=== PATIENT | male | born 1940 | race Caucasian/White ===

== ENCOUNTER 2016-11-10 17:24 | Emergency (ER) | payer MEDICARE ==
[2010-11-21 23:39] VITALS: BMI 32.6
[2016-11-10 18:31] LABS: BASOPHILS 0.3 % (0.0-2.0); EOSINOPHILS 2.1 % (0-7); HEMATOCRIT 45.4 % (42.0-54.0); HEMOGLOBIN 15.4 g/dL (13.5-17.5); IMMATURE GRANULOCYTES 0.1 % (0-5); LYMPHOCYTES 26.7 % (15-50); MCH 30.7 pg (26.0-34.0); MCHC 33.9 g/dL (31.0-37.0); MCV 90.4 fL (80.0-100.0); MEAN PLATELET VOLUME 9.5 fL (7.4-10.4); MONOCYTES 14.9 % (2-11); NEUTROPHILS 55.9 % (40-80); PLATELET COUNT 156 10x3/uL (130-400); RBC 5.02 10x6/uL (4.20-6.10); WBC 7.2 10x3/uL (4.8-10.8)
== END 2016-11-10 21:30 | disposition home or self-care (01) ==
LOC: D.ER 17:24
PROVIDERS: Emergency Medicine
DX: J18.9 Pneumonia, unspecified organism (principal); E11.9 Type 2 diabetes mellitus without complications; Z79.4 Long term (current) use of insulin; I10 Essential (primary) hypertension

== ENCOUNTER → 2017-01-20 13:15 | Outpatient (CLI) | payer MEDICARE ==
[2010-11-21 23:39] VITALS: BMI 32.6
== END | disposition home or self-care (01) ==
LOC: D.US 13:15
DX: M54.5 Low back pain (principal)

== ENCOUNTER 2017-05-08 07:34 | Inpatient (IN) | payer MEDICARE ==
[~2017-05-08] VITALS: Ht 182.9 cm; Wt 95.3 kg
--- NOTE | ~2017-05-08 | HEMODYNAMI ---
PATIENT:CHARLEY VASQUEZ JR MEDICAL RECORD: [id number] : 44 LOCATION:D.CAT ADMISSION DATE: 05/08/17 Generatedon:05/08/201711:38 Patient name: CHARLEY VASQUEZ Patient #: [id number] SSN: : 1940 Date of study: 05/08/2017 Page: Of Hemodynamic Procedure Report Patient Data Patient Demographics Procedure consent was obtained First Name: CHARLEY Gender: Male Last Name: PEDRO Suffix: [facility] Initial: Vonda : 1940 Patient #: [id number] Age: 76 year(s) Race: Unknown Additional ID: [id number] Contact details [address]: [address] [place] [address] State: [place] City: [place] Zip code: [address] Past Medical History Allergies Allergen Reaction Date Comments Reported Penicillins 05/08/2017 Admission Admission Data Admission Date: 05/08/2017 Admission Time: 7:34 Lab Results Lab Result Date: 05/08/2017 Lab Result Time: 0:00 Biochemistry Name Units Result Min Max BUN mg/dl 13 --(--*-)-- 7 18 Creatinine mg/dl 1 --(--*-)-- 0.6 1.3 CBC Name Units Result Min Max Hemoglobin g/dl 15.1 --(-*--)-- 13.5 17.5 Procedure Procedure Types Cath Procedure Diagnostic Procedure LHC LHC w/Coronaries w/Grafts Miscellaneous Procedures Moderate Sedation up to 30 minutes Procedure Description Procedure Date Procedure Date: 05/08/2017 Procedure Start Time: 11:19 Procedure End Time: 11:37 Procedure Staff Name Function Claude Mills MD Performing Physician Chasity Peterson RN Nurse Srinivasan Hitchcock RT Monitor Jhon Carrizales RT Scrub Procedure Data Cath Procedure Fluoroscopy Diagnostic fluoroscopy Total fluoroscopy Time: 2 time: 2 min min Diagnostic fluoroscopy Total fluoroscopy dose: 286 dose: 286 mGy mGy Contrast Material Contrast Material Type Amount (ml) Isovue 300 90 Entry Location Entry Primary Successful Side Size Upsize Upsize Entry Closure Succes sful Closure Location (Fr) 1 (Fr) 2 (Fr) Remarks Device Remarks Femoral Right 5 Fr Exoseal artery Diagnostic catheters Device Type Used For End Catheter Placement Cordis 5Fr Pigtail LV Angiography Catheter (MP) Cordis 5Fr JL 4.0 Left Coronary Catheter (MP) Angiography Cordis 5Fr 3DRC Catheter SVG Angiography (MP) Cordis 5Fr 3DRC Catheter Right Coronary (MP) Angiography Diagnostic Infinity 5Fr SVG Angiography AR MOD Catheter Procedure Complications No complications Procedure Medications Medication Administration Route Dosage Oxygen NC 2 l/min Heparin Flush Bag added to field 2 bags (1000units/500ml NS) Lidocaine 2% added to field 20 Versed I.V. 1 mg Fentanyl I.V. 50 mcg Versed I.V. 1 mg Fentanyl I.V. 50 mcg Versed I.V. 1 mg Fentanyl I.V. 50 mcg Versed I.V. 1 mg Fentanyl I.V. 50 mcg Hemodynamics Rest HGB: 15.1 (g/dl) Heart Rate: 89 (bpm) Snapshots Pre Cath Intra NCS Post Cath Vital Signs Time Heart Resp SPO2 NIBP (mmHg) Rhythm Pain Sedation Rate (ipm) (%) Status Level (bpm) 10:37:56 90 14 96 147/79(116) NSR w/ ST 0 (11) 10(A) Elevation , No pain 10:42:20 87 18 95 140/77(105) NSR w/ ST 0 (11) 10(A) Elevation , No pain 10:46:46 85 18 95 139/72(106) NSR w/ ST 0 (11) 10(A) Elevation , No pain 10:51:13 82 25 96 135/75(103) NSR w/ ST 0 (11) 10(A) Elevation , No pain 10:55:39 86 20 94 139/72(99) NSR w/ ST 0 (11) 10(A) Elevation , No pain 11:00:07 83 20 95 128/71(97) NSR w/ ST 0 (11) 10(A) Elevation , No pain 11:05:06 84 22 90 Measuring NSR w/ ST 0 (11) 10(A) Elevation , No pain 11:05:21 84 20 91 130/64(96) NSR w/ ST 0 (11) 10(A) Elevation , No pain 11:10:20 86 21 96 Measuring NSR w/ ST 0 (11) 10(A) Elevation , No pain 11:10:44 84 23 95 123/71(94) NSR w/ ST 0 (11) 10(A) Elevation , No pain 11:15:02 85 21 96 126/70(101) NSR w/ ST 0 (11) 9(A) Elevation , No pain 11:19:20 81 24 96 126/68(94) NSR w/ ST 0 (11) 9(A) Elevation , No pain 11:23:45 83 21 95 127/65(98) NSR w/ ST 0 (11) 9(A) Elevation , No pain 11:28:07 85 22 95 119/72(102) NSR w/ ST 0 (11) 9(A) Elevation , No pain 11:29:57 85 23 95 132/49(92) NSR w/ ST 0 (11) 10(A) Elevation , No pain 11:34:57 84 23 95 Measuring NSR w/ ST 0 (11) 10(A) Elevation , No pain 11:36:21 82 21 96 Time NSR w/ ST 0 (11) 10(A) Exceeded Elevation , No pain Medications Time Medication Route Dose Verified Delivered Reason Notes Effec tiveness by by 10:31:14 Oxygen NC 2 Claude Chasity Per l/min Gene Peterson RN physician 10:50:28 Heparin Flush added 2 Claude Claude used for Bag to bags Gene Mills MD procedure (1000units/500ml field NS) 10:50:37 Lidocaine 2% added 20ml Claude Claude used for to vial Gene Mills MD procedure field 11:08:17 Versed I.V. 1 mg Claude Chasity for eGne Peterson RN sedation 11:08:37 Fentanyl I.V. 50 Claude Chasity for mcg Gene Peterson RN sedation 11:11:20 Versed I.V. 1 mg Claude Chasity for Gene Peterson RN sedation 11:11:23 Fentanyl I.V. 50 Claude Chasity for mcg Gene Peterson RN sedation 11:15:29 Versed I.V. 1 mg Claude Chasity for Gene Peterson RN sedation 11:15:41 Fentanyl I.V. 50 Claude Thrasherca for mcg Gene Peterson RN sedation 11:20:57 Versed I.V. 1 mg Claude Maloneecca for Gene Peterson RN sedation 11:21:00 Fentanyl I.V. 50 Claude Maloneecca for mcg Gene Peterson RN sedation Procedure Log Time Note 9:56:29 Diagnostic Cath status Urgent 9:56:34 Jhon Carrizales RT(R) sent for patient. Start room use. 9:56:35 Time tracking: Regular hours 9:56:39 Plan of Care:Hemodynamics will remain stable., Cardiac rhythm will remain stable., Comfort level will be maintained., Respiratory function will remain adequate., Patient/ family verbilizes understanding of procedure., Procedure tolerated without complication., Recovers from procedure without complications.. 10:30:27 Patient received from ED to CCL 3 Alert and oriented. Tansferred to table in Supine position. 10:31:14 Oxygen 2 l/min NC was administered by Chasity Peterson RN; Per physician; 10:36:28 Correct patient and procedure confirmed by team. 10:36:28 Warm blankets applied, and moy hugger turned on for patient comfort. 10:36:31 Signed procedure consent form obtained from patient. 10:36:33 ECG and BP/O2 sat monitors applied to patient. 10:36:34 Vital chart was started 10:36:44 Baseline sample Acquired. 10:36:51 Rhythm: sinus rhythm 10:36:57 Full Disclosure recording started 10:42:22 H&P Date Dictated: 05/08/2017 Within 30 days and on chart.. 10:42:23 Pre-procedure instructions explained to patient. 10:42:23 Pre-op teaching completed and patient verbalized understanding. 10:42:25 Family in waiting room. 10:42:26 Patient NPO since Midnight. 10:43:08 Patient allergic to Penicillins 10:43:11 Is the patient allergic to Iodine/contrast media? No. 10:43:17 Is patient on blood thinner?No 10:43:19 Patient diabetic? Yes. 10:43:20 If diabetic: On Metformin? No 10:43:21 ----Pre-sedation anethsthesia assessment.---- 10:43:23 Previous problem with sedation/anesthesia? No ? 10:43:24 Snore? Yes 10:43:26 Sleep apnea? No 10:43:27 Deviated septum? No 10:43:29 Opens mouth fully? Yes 10:43:30 Sticks out tongue? Yes 10:43:31 Airway obstruction? No ? 10:43:34 Dentures? No ? 10:43:38 Pre procedure: right dorsailis pedis pulse 1+ Palpable, but thready & weak; easily obliterated 10:43:40 Patient pain scale 0/10 ?. 10:43:44 IV patent on arrival in left hand with 0.9% NaCl at 10ml/hr. 10:44:44 Lab Result : BUN 13 mg/dl 10:44:44 Lab Result : Creatinine 1 mg/dl 10:44:44 Lab Result : Hemoglobin 15.1 g/dl 10:44:47 Lab results completed and on chart. 10:44:50 Right groin area was prepped with chlora-prep and draped in sterile fashion 10:44:51 Alarms reviewed by R. N. 10:44:51 Sharps counted by scrub and verified by R.N. 10:44:57 Use device set Femoral Dx 10:44:58 Acist Syringe opened to sterile field. 10:44:59 Bag Decanter opened to sterile field. 10:44:59 Medline Cath Pack opened to sterile field. 10:44:59 Terumo 5Fr [place] Sheath opened to sterile field. 10:45:00 St Xavier 260cm J .035 wire opened to sterile field. 10:45:01 Acist Hand Control opened to sterile field. 10:45:01 Acist Manifold opened to sterile field. 10:45:02 Diagnostic Infinity 5Fr Multipack catheter opened to sterile field. 10:45:02 Tegaderm 4 x 4 opened to sterile field. 10:50:28 Heparin Flush Bag (1000units/500ml NS) 2 bags added to field was administered by Claude Mills MD; used for procedure; 10:50:37 Lidocaine 2% 20ml vial added to field was administered by Claude Mills MD; used for procedure; 11:07:15 --------ALL STOP TIME OUT------ 11:07:15 Final Timeout: patient, procedure, and site verified with staff and physician. All members of the team are in agreement. 11:07:17 Right groin site verified by team. 11:07:26 Physical assessment completed. ASA score P 2 - A patient with mild systemic disease as per Claude Mills MD. 11:07:30 Sedation plan: IV Moderate Sedation Versed, Fentanyl 11:07:47 Zero performed for pressure channel P1 11:07:51 Zero performed for pressure channel P1 11:08:17 Versed 1 mg I.V. was administered by Chasity Peterson RN; for sedation; 11:08:37 Fentanyl 50 mcg I.V. was administered by Chasity Peterson RN; for sedation; 11:11:20 Versed 1 mg I.V. was administered by Chasity Peterson RN; for sedation; 11:11:23 Fentanyl 50 mcg I.V. was administered by Chasity Peterson RN; for sedation; 11:15:29 Versed 1 mg I.V. was administered by Chasity Peterson RN; for sedation; 11:15:41 Fentanyl 50 mcg I.V. was administered by Chasity Peterson RN; for sedation; 11:18:59 Procedure started. 11:19:08 Local anesthetic to right femoral artery with Lidocaine 2% by Claude Mills MD.INITIAL ACCESS ONLY 11:19:16 A 5 Fr sheath was inserted into the Right Femoral artery 11:19:27 A Cordis 5Fr Pigtail Catheter (MP) was advanced over the wire and used for LV Angiography. 11:20:18 LV angiography performed. 11:20:19 LV gram done using SUAREZ 11:20:24 EF : 25 % 11:20:29 Injector settings: Ml/sec: 10, Volume: 20, 11:20:31 Catheter removed. 11:20:36 A Cordis 5Fr JL 4.0 Catheter (MP) was advanced over the wire and used for Left Coronary Angiography. 11:20:39 LCA angiography performed. 11:20:57 Versed 1 mg I.V. was administered by Chasity Peterson RN; for sedation; 11:21:00 Fentanyl 50 mcg I.V. was administered by Chasity Peterson RN; for sedation; 11:21:05 Catheter removed. 11:21:12 A Cordis 5Fr 3DRC Catheter (MP) was advanced over the wire and used for SVG Angiography. 11:21:15 A Cordis 5Fr 3DRC Catheter (MP) was advanced over the wire and used for Right Coronary Angiography. 11:21:23 OCONNELL to LAD angiography performed. 11:22:11 RCA angiography performed. 11::41 Catheter removed. 11:22:48 A Diagnostic Infinity 5Fr AR MOD Catheter was advanced over the wire and used for SVG Angiography. 11:23:35 SVG to Diag angiography performed. 11:23:54 SVG to Ramus angiography performed. 11:23:58 SVG to OM angiography performed. 11:24:20 SVG to RCA angiography performed. 11:24:22 Catheter removed. 11:24:38 Cordis 5Fr Exoseal opened to sterile field. 11:24:44 Sheath removed intact; hemostasis achieved with Exoseal to the Right Femoral artery. 11:24:47 Contrast amount:Isovue 300 90ml. 11:24:48 Procedure ended.(Physican Out) 11:24:57 Fluoroscopy time 02.00 minutes. 11:25:02 Fluoroscopy dose: 286 mGy 11:25:02 Flurop Dose total: 286 11:25:04 Sharps counted by scrub and verified by R.N. 11:25:04 Insertion/operative site no bleeding no hematoma. 11:25:07 Post-op/insertion site Right Femoral artery dressed using a 4 x 4 and Tegaderm. 11:25:12 Post right femoral artery:stable 11:25:13 Post Procedure Pulses reassessed and unchanged 11:25:18 Post procedure rhythm: sinus tachycardia 11:25:20 Post procedure instruction explained to patient.Patient verbalizes understanding. 11:25:46 Procedure type changed to Cath procedure, Diagnostic procedure, LHC, LHC w/Coronaries w/Grafts, Miscellaneous Procedures, Moderate Sedation up to 30 minutes 11:25:50 Procedure and supply charges have been captured, reviewed, submitted and are correct. 11:25:53 Procedure Complication : No complications 11:37:41 Vital chart was stopped 11::41 See physician's report for complete and final results. 11:37:43 Report given to Pre/Post Procedure Room. 11:37:46 Patient transfered to Pre/Post Procedure Room with Stretcher. 11:37:51 Procedure ended. 11:37:51 Full Disclosure recording stopped 11:37:54 End room use (Document Last) Device Usage Item Name Manufacture Quantity Catalog Hospital Part Current Minimal Lo t# / Number Charge Number Stock Stock Serial# Code Acist Acist 1 11031 [id number] 064606 496642 20 Syringe [employer] Inc Bag Microtek 1 2002S 153828 14474 378257 5 Decanter Medical Inc. Medline Cardinal 1 [id number] 379019 70617 377676 5 Cath Pack Health Terumo 5Fr Terumo 1 [id number] 223709 459352 259717 [address] [place] [address] [facility] 1 554262 253164 298263 251346 30 260cm J .035 wire Acist Hand Acist 1 04066 948763 660144 301102 5 Control Medical Systems Inc Acist Acist 1 10672 629587 819023 824522 5 Manifold Medical Systems Inc Diagnostic Cardinal 1 [id number] 864733 75989 460511 30 Infinity Health 5Fr Multipack catheter Tegaderm 4 3M 1 1626W 303544 689362 765867 5 x 4 Cordis 5Fr Cardinal 1 121522 5 Pigtail Health Catheter (MP) Cordis 5Fr Cardinal 1 [id number] 5 JL 4.0 Health Catheter (MP) Cordis 5Fr Cardinal 1 279240 5 3DRC Health Catheter (MP) Diagnostic Cardinal 1 [id number] 663722 912579 090864 15 Infinity Health 5Fr AR MOD Catheter Cordis 5Fr Cardinal 1 EX500 560843 784284 764602 10 [place] Signature Audit [place] Stage Time Signature Unsigned Intra-Procedure 05/08/2017 Srinivasan Hitchcock 11:38:15 AM RT(R) Signatures Monitor : Srinivasan Hitchcock RT Signature : Date : Time : [place] [id number] [facility] [place] [address]
[2017-05-08 08:17] LABS: BASOPHILS 0.2 % (0-2); EOSINOPHILS 0.5 % (0-7); HEMATOCRIT 44.3 % (42.0-54.0); HEMOGLOBIN 15.1 g/dL (13.5-17.5); IMMATURE GRANULOCYTES 0.2 % (0-5); LYMPHOCYTES 19.7 % (15-50); MCH 30.5 pg (26.0-34.0); MCHC 34.1 g/dL (31.0-37.0); MCV 89.5 fL (80.0-100.0); MEAN PLATELET VOLUME 9.6 fL (7.4-10.4); MONOCYTES 12.6 % (2-11); NEUTROPHILS 66.8 % (40-80); PLATELET COUNT 148 10x3/uL (130-400); RBC 4.95 10x6/uL (4.20-6.10); RDW 12.9 % (11.5-14.5); WBC 9.4 10x3/uL (4.8-10.8)
[2017-05-08 08:41] LABS: APPEARANCE CLEAR (CLEAR); COLOR YELLOW (YELLOW); LEUKOCYTE ESTERASE TRACE (NEGATIVE); NITRITE NEGATIVE (NEGATIVE); PROTEIN 1+ mg/dL (NEGATIVE); SPECIFIC GRAVITY 1.015 (1.005-1.020)
[2017-05-08 08:42] LABS: BACTERIA FEW /hpf (NONE SEEN); BILIRUBIN NEGATIVE (NEGATIVE); EPITHELIAL CELLS 0-5 /hpf (0-5); GLUCOSE 50 mg/dL (NEGATIVE); KETONE NEGATIVE (NEGATIVE); MUCUS >1+ /lpf (NONE SEEN); RED CELLS - URINE 0-5 /hpf (0-5); UROBILINOGEN NORMAL (NORMAL); WHITE CELLS - URINE OCC /hpf (0-5)
[2017-05-08 08:45] LABS: ALBUMIN 3.6 g/dL (3.4-5.0); ALKALINE PHOSPHATASE 65 U/L (46-116); ALT (SGPT) 26 U/L (10-68); C-REACTIVE PROTEIN 4.3 mg/dL (0.0-0.9); CALC OSMOLALITY 263 mosm/kg (275-300); CALCIUM 8.9 mg/dL (8.5-10.1); CARBON DIOXIDE 23.2 mmol/L (21.0-32.0); CHLORIDE - SERUM 99 mmol/L (98-107); CREATINE KINASE 59 UL (21-232); MAGNESIUM - SERUM 1.8 mg/dL (1.8-2.4); POTASSIUM - SERUM 3.5 mmol/L (3.5-5.1); PRO BNP 1077 pg/mL (0-125); PROTEIN - SERUM 7.6 g/dL (6.4-8.2); SODIUM 129 mmol/L (136-145); THYROID STIMULATING HORMONE 0.92 uIU/mL (0.36-3.74); UREA NITROGEN 13 mg/dL (7-18); eGFR NON AFRICAN AMERICAN 78 mL/min (90-120)
[2017-05-08 08:50] LABS: GLUCOSE 184 mg/dL (74-106)
[2017-05-08 10:14] LABS: APTT 27.1 SECONDS (22.8-39.4); INR 1.04 (0.85-1.17); PROTIME 13.4 SECONDS (11.6-15.0)
[2017-05-08] MEDS ORDERED: FLOMAX0.4 MG PO (16:16)
[2017-05-08] MEDS ORDERED: NORVASC10 MG PO (16:16)
[2017-05-08] MEDS ORDERED: LANTUS INSULIN10 ML SC (16:17)
[2017-05-08] MEDS ORDERED: PRINIVIL20 MG PO (16:18)
[2017-05-08] MEDS ORDERED: COREG6.25 MG PO (16:19)
[2017-05-08] MEDS ORDERED: HYDROCHLOROTH12.5 M1 PO (16:19)
[2017-05-08] MEDS ORDERED: LUMIGAN 0.01%2.5 ML LEFT EYE (16:20)
[2017-05-08] MEDS ORDERED: LIPITOR40 MG PO (16:22)
[2017-05-08] MEDS ORDERED: ASPIRIN81 MG PO (16:23)
[2017-05-08 16:24] VITALS: BP 129/55; BMI 29.9
[2017-05-08 17:33] LABS: BASOPHILS 0.2 % (0-2); EOSINOPHILS 0.2 % (0-7); HEMATOCRIT 44.1 % (42.0-54.0); IMMATURE GRANULOCYTES 0.2 % (0-5); LYMPHOCYTES 19.1 % (15-50); MCH 30.4 pg (26.0-34.0); MCV 89.5 fL (80.0-100.0); MEAN PLATELET VOLUME 9.8 fL (7.4-10.4); MONOCYTES 17.1 % (2-11); NEUTROPHILS 63.2 % (40-80); PLATELET COUNT 145 10x3/uL (130-400); RBC 4.93 10x6/uL (4.20-6.10); WBC 10.6 10x3/uL (4.8-10.8)
[2017-05-08 17:48] LABS: ALBUMIN 3.4 g/dL (3.4-5.0); ANION GAP 14.1 mmol/L (8-16); BILIRUBIN - TOTAL 0.78 mg/dL (0.2-1.3); CALCIUM 8.8 mg/dL (8.5-10.1); CARBON DIOXIDE 24.4 mmol/L (21.0-32.0); CREATININE - SERUM 1.1 mg/dL (0.6-1.3); POTASSIUM - SERUM 3.5 mmol/L (3.5-5.1); PROTEIN - SERUM 6.9 g/dL (6.4-8.2)
[2017-05-08 19:00] VITALS: BP 117/55
[2017-05-08 20:25] LABS: APPEARANCE CLEAR (CLEAR); BILIRUBIN NEGATIVE (NEGATIVE); COLOR YELLOW (YELLOW); GLUCOSE NEGATIVE (NEGATIVE); KETONE NEGATIVE (NEGATIVE); LEUKOCYTE ESTERASE NEGATIVE (NEGATIVE); NITRITE NEGATIVE (NEGATIVE); PROTEIN TRACE mg/dL (NEGATIVE); SPECIFIC GRAVITY 1.015 (1.005-1.020); UROBILINOGEN NORMAL (NORMAL)
[2017-05-09] MEDS ORDERED: TYLENOL PM1 TAB PO (00:14)
[2017-05-09 04:00] VITALS: BP 107/37
[2017-05-09 08:00] VITALS: BP 149/60
[2017-05-09 12:00] VITALS: BP 142/80
[2017-05-09 14:44] VITALS: Ht 182.9 cm; Wt 95.3 kg
[2017-05-09] MEDS ORDERED: FLORAJEN3 CAPS460 MG PO (15:49)
[2017-05-09] MEDS ORDERED: VIBRAMYCIN 100100 MG PO (15:50)
--- NOTE | 2017-05-15 10:09 | CN ---
PATIENT NAME:CHARLEY VASQUEZ JR MEDICAL RECORD: [id number] : 44 LOCATION:. D.2127 ADMIT DATE: 05/08/17 ACCOUNT: [id number] CONSULTING PHYSICIAN: ALBER MCARTHUR MD REFERRING PHYSICIAN: DAYANA GUZMAN M.D. INDICATION: 1. Chest pain. 2. Shortness of breath. 3. Coronary artery disease. 4. Previous coronary artery bypass graft surgery. HISTORY OF PRESENT ILLNESS: This is a gentleman who is known to us with a past history of coronary artery disease status post coronary artery bypass graft surgery. He presented to the emergency room with episodes of night sweats and shortness of breath at night. He had mild chest pain and chest discomfort as well. His electrocardiogram is with no acute changes. His troponin is normal. PHYSICAL EXAMINATION: HEAD, EYES, EARS, NOSE, AND THROAT: Benign. NECK: Supple. No jugular venous distention. Carotid upstroke plus two bilaterally without bruits. LUNGS: Overall clear to auscultation and percussion. HEART: Regular. Normal S1, normal S2. No S3, no S4. No murmurs. BONES, JOINTS, EXTREMITIES: No clubbing, cyanosis, or edema. OVERALL IMPRESSION: Dyspnea on exertion with some chest discomfort. He has a past history of coronary artery disease status post multivessel bypass surgery, so a high likelihood of recurrent disease causing the symptomatology. Will proceed with coronary angiography. ALBER MCARTHUR MD at 1009 CC: [id number] DICTATION DATE: 05/08/17 1239 ROTARY DRUM TANNER: TC 05/09/17 1239 DIS IN 05/09/17 [place] [address] [place] [id number]
--- NOTE | 2017-05-15 10:09 | PRO ---
PATIENT:CHARLEY VASQUEZ JR MEDICAL RECORD: [id number] : 44 LOCATION:D.M2 D.2127 ADMISSION DATE: 05/08/17 PROCEDURE PERFORMED BY: ALBER MCARTHUR MD PROCEDURE DATE: 05/08/17 DATE OF PROCEDURE: 05/08/17 PROCEDURES: 1. Left heart catheterization. 2. Selective coronary angiography. 3. Left ventriculogram. 4. Vein graft angiography. 5. Left internal mammary artery angiography. INDICATION: Angina, dyspnea on exertion, shortness of breath, coronary artery disease. PROCEDURE IN DETAIL: After informed consent was obtained and after detailed explanation of risks, benefits, as well as alternative therapies, the patient elected to proceed with angiogram. The right femoral area was prepped and draped in a normal sterile fashion. The right femoral artery was cannulated via modified Seldinger technique with placement of 5-Welsh sheath. All catheters exchanged through this sheath. FINDINGS: Left ventriculogram was performed in standard 30 degree SUAREZ view, reveals global hypokinesis throughout all segments. Overall ejection fraction 35%. SELECTIVE CORONARY ANGIOGRAPHY: 1. Left main has a 95% stenosis distally. 2. Left anterior descending is totally occluded. 3. Left circumflex is totally occluded. 4. Right coronary artery is totally occluded. 5. Left internal mammary artery to the left anterior descending artery is widely patent. Distal left anterior descending artery is widely patent. 6. Vein graft to the left anterior descending diagonal is widely patent. The left anterior descending diagonal is small, diffusely diseased, but widely patent. 7. Vein graft to the ramus intermedius is widely patent. The distal ramus intermedius is widely patent. 8. Vein graft to the first obtuse marginal is widely patent. The obtuse marginal is small, diffusely diseased, but widely patent. 9. Vein graft to the right coronary artery is widely patent. Distal right coronary artery is small, diffusely diseased, but widely patent. OVERALL IMPRESSION: Wide patency of all four grafts. Moderate cardiomyopathy. Continue medical management of the coronary artery disease and cardiomyopathy. PROCEDURE NOTE [id number] CHARLEY VASQUEZ ALBER KING MD at 1009 CC: [id number] DICTATION DATE: 05/08/17 1159 GEARMAN: TC 05/09/17 1159 DIS IN 05/09/17 [facility] [address] [place] [address]
[2017-05-18 12:56] LABS: EHRLICHIA CHAFF IGG Negative (Neg:<1:64); EHRLICHIA CHAFF IGM Negative (Neg:<1:20); HGE IGG TITER Negative (Neg:<1:64); HGE IGM TITER Negative (Neg:<1:20)
[2017-05-18 14:14] LABS: F. TULARENSIS - IGG Negative (()); F. TULARENSIS - IGM Negative (())
[2017-05-18 16:11] LABS: RMSF IGM 0.18 index (0.00-0.89)
== END 2017-05-09 18:34 | disposition home or self-care (01) | DRG 287 ==
LOC: D.ER 07:34 → D.CATH 07:34 → EDSTATUS 10:15 → D.M2 15:45 → D.CATH 15:46 → D.M2 05-09 18:34
PROVIDERS: Emergency Medicine; Internal Medicine Interventional Cardiology; ADMIT Family Medicine
PROC: B2131ZZ Fluoroscopy of Multiple Coronary Artery Bypass Grafts using Low Osmolar Contrast (ICD-10-PCS; 2017-05-08)
PROC: B2181ZZ Fluoroscopy of Left Internal Mammary Bypass Graft using Low Osmolar Contrast (ICD-10-PCS; 2017-05-08)
PROC: B2151ZZ Fluoroscopy of Left Heart using Low Osmolar Contrast (ICD-10-PCS; 2017-05-08)
PROC: 4A023N7 Measurement of Cardiac Sampling and Pressure, Left Heart, Percutaneous Approach (ICD-10-PCS; 2017-05-08)
PROC: B2111ZZ Fluoroscopy of Multiple Coronary Arteries using Low Osmolar Contrast (ICD-10-PCS; principal; 2017-05-08 10:15)
DX: I25.119 Atherosclerotic heart disease of native coronary artery with unspecified angina pectoris (principal); A93.8 Other specified arthropod-borne viral fevers; I50.22 Chronic systolic (congestive) heart failure; Z95.1 Presence of aortocoronary bypass graft; I48.91 Unspecified atrial fibrillation; I11.0 Hypertensive heart disease with heart failure; E03.9 Hypothyroidism, unspecified; I49.1 Atrial premature depolarization; E11.65 Type 2 diabetes mellitus with hyperglycemia; F41.9 Anxiety disorder, unspecified; Z87.891 Personal history of nicotine dependence

== ENCOUNTER 2017-05-20 14:00 | Emergency (ER) | payer MEDICARE ==
[2017-05-09 14:44] VITALS: BMI 28.5
[~2017-05-20 14:00] MED LIST: ASPIRIN81 MG PO; COREG6.25 MG PO; FLOMAX0.4 MG PO; FLORAJEN3 CAPS460 MG PO; HYDROCHLOROTH12.5 M1 PO; LANTUS INSULIN10 ML SC; LIPITOR40 MG PO; LUMIGAN 0.01%2.5 ML LEFT EYE; NORVASC10 MG PO; PRINIVIL20 MG PO; TYLENOL PM1 TAB PO; VIBRAMYCIN 100100 MG PO
[2017-05-20 14:30] LABS: BASOPHILS 0.3 % (0-2); EOSINOPHILS 0.8 % (0-7); HEMATOCRIT 42.5 % (42.0-54.0); HEMOGLOBIN 14.3 g/dL (13.5-17.5); IMMATURE GRANULOCYTES 0.2 % (0-5); MCHC 33.6 g/dL (31.0-37.0); MEAN PLATELET VOLUME 9.2 fL (7.4-10.4); MONOCYTES 10.1 % (2-11); NEUTROPHILS 64.6 % (40-80); RBC 4.62 10x6/uL (4.20-6.10); RDW 13.7 % (11.5-14.5); WBC 11.1 10x3/uL (4.8-10.8)
[2017-05-20 14:31] LABS: PLATELET COUNT 292 10x3/uL (130-400)
[2017-05-20 14:44] LABS: APPEARANCE CLEAR (CLEAR); BILIRUBIN NEGATIVE (NEGATIVE); COLOR YELLOW (YELLOW); GLUCOSE NEGATIVE (NEGATIVE); KETONE NEGATIVE (NEGATIVE); LEUKOCYTE ESTERASE NEGATIVE (NEGATIVE); NITRITE NEGATIVE (NEGATIVE); PROTEIN NEGATIVE (NEGATIVE); SPECIFIC GRAVITY 1.005 (1.005-1.020); UROBILINOGEN NORMAL (NORMAL)
[2017-05-20 15:06] LABS: ALBUMIN 3.6 g/dL (3.4-5.0); ALKALINE PHOSPHATASE 76 U/L (46-116); ALT (SGPT) 35 U/L (10-68); BILIRUBIN - TOTAL 0.63 mg/dL (0.2-1.3); CALC OSMOLALITY 282 mosm/kg (275-300); CALCIUM 9.4 mg/dL (8.5-10.1); CARBON DIOXIDE 25.2 mmol/L (21.0-32.0); CHLORIDE - SERUM 103 mmol/L (98-107); CREATININE - SERUM 0.8 mg/dL (0.6-1.3); GLUCOSE 176 mg/dL (74-106); POTASSIUM - SERUM 4.6 mmol/L (3.5-5.1); PROTEIN - SERUM 7.5 g/dL (6.4-8.2); SODIUM 140 mmol/L (136-145); UREA NITROGEN 12 mg/dL (7-18); eGFR NON AFRICAN AMERICAN > 90 mL/min (90-120)
== END 2017-05-20 16:20 | disposition home or self-care (01) ==
LOC: D.ER 14:00
PROVIDERS: Emergency Medicine
DX: J20.9 Acute bronchitis, unspecified (principal); F17.200 Nicotine dependence, unspecified, uncomplicated

== ENCOUNTER → 2017-07-22 10:33 | Outpatient (CLI) | payer MEDICARE ==
[2017-05-09 14:44] VITALS: BMI 28.5
== END | disposition home or self-care (01) ==
LOC: D.RAD 10:33
DX: R06.02 Shortness of breath (principal)

== ENCOUNTER 2017-08-26 15:30 | Observation (INO) | payer MEDICARE ==
--- NOTE | 2017-08-26 15:42 | NUR ---
NEW ADMIT FROM DR HENRIQUEZ OFFICE. OREINTED TO ROOM. CALL LIGHT IN REACH. WILL CONT. PLAN OF CARE.
[2017-08-26] MEDS ORDERED: ENTRESTO 49 MG1 EACH PO (15:58)
[2017-08-26] MEDS ORDERED: FUROSEMIDE20 MG PO (15:58)
[2017-08-26] MEDS ORDERED: TEMAZEPAM30 MG PO (16:00)
[2017-08-26 16:37] VITALS: BMI 33.3
--- NOTE | 2017-08-26 17:57 | NUR ---
WITHOUT CHANGES OR DISTRESS NOTED AT THIS TIME. DENIES NEEDS.
[2017-08-26] MEDS ORDERED: HUMALOG 30100 UNITS/ SC (18:48)
[2017-08-26 20:35] VITALS: BP 126/66
--- NOTE | 2017-08-26 20:53 | NUR ---
HS MEDS GIVEN WITH FRESH ICE WATER, BS 175, LANTUS GIVEN BUT PT REFUSED HUMALOG S/S COVERAGE. STATED THAT HE USUALLY DOENST TAKE IT AT BED TIME. DENIES PAIN OR NEEDS.
[2017-08-27 00:31] VITALS: BP 112/62
--- NOTE | 2017-08-27 01:42 | NUR ---
RESTING WITH EYES CLOSED, RESPERATIONS EVEN, NO S/S DISTRESS NOTED.
--- NOTE | 2017-08-27 02:31 | NUR ---
LYING IN BED WITH EYES CLOSED, CALL LIGHT IN REACH. WILL CONTINUE WITH PLAN OF CARE. 83 SR WITH 1ST DEGREE AVB, BBB, AND PVCS.
--- NOTE | 2017-08-27 04:14 | NUR ---
ESTATE AGENT AT BED SIDE TO OBTAIN VITALS.
[2017-08-27 05:33] VITALS: BP 114/60
[2017-08-27 06:21] LABS: BASOPHILS 0.3 % (0-2); EOSINOPHILS 2.7 % (0-7); HEMATOCRIT 50.9 % (42.0-54.0); HEMOGLOBIN 16.8 g/dL (13.5-17.5); IMMATURE GRANULOCYTES 0.3 % (0-5); LYMPHOCYTES 23.5 % (15-50); MCH 30.1 pg (26.0-34.0); MCV 91.1 fL (80.0-100.0); MEAN PLATELET VOLUME 10.1 fL (7.4-10.4); MONOCYTES 12.5 % (2-11); NEUTROPHILS 60.7 % (40-80); PLATELET COUNT 245 10x3/uL (130-400); RBC 5.59 10x6/uL (4.20-6.10); RDW 13.9 % (11.5-14.5); WBC 11.5 10x3/uL (4.8-10.8)
[2017-08-27 06:42] LABS: CALC OSMOLALITY 286 mosm/kg (275-300); CALCIUM 9.1 mg/dL (8.5-10.1); CARBON DIOXIDE 30.7 mmol/L (21.0-32.0); CHLORIDE - SERUM 102 mmol/L (98-107); POTASSIUM - SERUM 3.1 mmol/L (3.5-5.1); SODIUM 144 mmol/L (136-145); UREA NITROGEN 15 mg/dL (7-18); eGFR NON AFRICAN AMERICAN 78 mL/min (90-120)
[2017-08-27 06:45] LABS: GLUCOSE 76 mg/dL (74-106)
[2017-08-27 08:00] VITALS: BP 126/55
--- NOTE | 2017-08-27 09:45 | NUR ---
ASSESSMENT DONE. DENIES NEEDS.
--- NOTE | 2017-08-27 09:45 | NUR ---
RESTS IN BED WITH EYES CLOSED. IV PATENT. CALL LIGHT IN REACH. WILL CONT. PLAN OF CARE.
[2017-08-27 10:18] VITALS: BMI 32.0
--- NOTE | 2017-08-27 14:30 | NUR ---
DC GIVEN TO PT
--- NOTE | 2017-08-27 15:15 | NUR ---
DC HOME PER PERSONAL CAR
--- NOTE | 2017-09-04 16:56 | DS ---
PATIENT:CHARLEY SANTIAGO JR :44 MEDICAL RECORD: [id number] DISCHARGE SUMMARY ADMISSION DATE: 08/26/17 DISCHARGE DATE: 08/27/17 DISCHARGE DIAGNOSES: 1. Congestive heart failure, chronic systolic dysfunction. 2. Cardiomyopathy. 3. Coronary artery disease. 4. Hypertension. HOSPITAL COURSE: Mr. Santiago presents with fluid overload, congestive heart failure state, underwent dobutamine and Bumex drips, had marked diuresis. Symptomatology markedly improved and was discharged home with no change in his medications. Follow up with [facility] in 1-2 weeks. TRANSINT:[id number] Voice Confirmation ID: [id number] DOCUMENT ID: [id number] ALBER MCARTHUR MD at 1656 CC: [id number] DICTATION DATE: 08/27/17 1249 DESIGN CENTER CONSULTANT: 08/27/17 1417 DIS IN 08/27/17 [place] [id number] [place] [address]
== END 2017-08-27 15:15 | disposition home or self-care (01) ==
LOC: D.M2 15:30 → OBSVTIME 15:30 → D.M2 08-27 15:15
PROVIDERS: ADMIT Internal Medicine Interventional Cardiology
DX: I11.0 Hypertensive heart disease with heart failure (principal); I50.22 Chronic systolic (congestive) heart failure; I42.9 Cardiomyopathy, unspecified; I25.10 Atherosclerotic heart disease of native coronary artery without angina pectoris

== ENCOUNTER 2018-01-25 06:45 | Outpatient (CLI) | payer MEDICARE ==
[~2018-01-25] VITALS: Ht 182.9 cm; Wt 110.9 kg
[~2018-01-25 06:45] MED LIST changes: +ENTRESTO 49 MG1 EACH PO; +FUROSEMIDE20 MG PO; +HUMALOG 30100 UNITS/ SC; +TEMAZEPAM30 MG PO
[2018-01-25 07:20] VITALS: BP 110/65; Ht 182.9 cm; Wt 110.9 kg
[2018-01-25] MEDS ORDERED: BUMEX2 MG PO (07:30)
[2018-01-25 07:53] LABS: ANION GAP 12.6 mmol/L (8-16); CARBON DIOXIDE 25.1 mmol/L (21.0-32.0); CREATININE - SERUM 0.9 mg/dL (0.6-1.3); POTASSIUM - SERUM 3.7 mmol/L (3.5-5.1)
== END 2018-01-25 16:08 | disposition home or self-care (01) ==
LOC: D.CATH 06:45
PROVIDERS: Internal Medicine Interventional Cardiology
DX: I50.9 Heart failure, unspecified (principal); I42.9 Cardiomyopathy, unspecified

== ENCOUNTER 2018-03-06 20:08 | Inpatient (IN) | payer MEDICARE ==
[~2018-03-06] VITALS: Ht 182.9 cm; Wt 102.0 kg
--- NOTE | ~2018-03-06 | EC ---
PATIENT:CHARLEY VASQUEZ JR DATE OF SERVICE: 03/06/18 SEX: M MEDICAL RECORD: [id number] DATE OF : 44 LOCATION:D.M2 D.210 AGE OF PATIENT: 77 ADMISSION DATE: 03/08/18 REFERRING PHYSICIAN: INTERPRETING PHYSICIAN: MARTHA MARINA MD ECHOCARDIOGRAM REPORT ECHO CHARGES 4 ECHO COMPLETE Date: 03/07 CLINICAL DIAGNOSIS: CHEST PAIN, HX OF CAD/CABG/PACER/STENTS ECHOCARDIOGRAPHIC MEASUREMENTS (adult normal given) AC root (d.<3.7cm) 4.1 cm LV Septum d (<1.2 cm> 1.8 cm Valve Excursion 1.7 cm LV Septum (systole) 2.0 cm Left Atria (s.<4.0cm> 4.3 cm LVPW d(<1.2cm) 1.7 cm RV (d.<2.3cm) 4.5 cm LVPW (sytole) 1.8 cm LV diastole(<5.6CM) 6.5 cm MV E-F(>70mm/sec) cm LV systole 5.1 cm LVOT Diameter 1.7 cm MV exc.(>10mm) 1.5 cm Est.ejection fraction (50-75%) % DOPPLER: LVIT cm/sec A 48.0 cm/sec E 136 cm/sec LA cm/sec RVSP 52 mmHg LVOT 112 cm/sec AOP1/2T 342 m/s Asc. Ao 148 cm/sec RVOT 83 cm/sec RA cm/sec PA 115 cm/sec AV Gradient Peak 8.79 mmHg AV Mean 5.49 mmHg AV Area 1.5 cm MV Gradient Peak 12.29mmHg MV Mean 3.28 mmHg MV Area cm COMMENTS: Semi Automatic Sewing Machine Operator: 2 VERONIKA RICKETTS Aerospace Mechanic: 4 Dr. Marina TAPE# PACS Pericardial Effusion N DATE OF SERVICE: PROCEDURE: Transthoracic echocardiogram. FINDINGS: 1. Left ventricle appears to be mildly dilated. There is mild global hypokinesis. Overall, ejection fraction is 35% to 40%. There is considerable asynchronous wall motion seen because of underlying bundle branch block. 2. The left atrium is mildly dilated. 3. The aortic valve appears to be normal with mild aortic insufficiency. ECHOCARDIOGRAM REPORT [id number] CHARLEY VASQUEZ JR 4. The mitral valve is difficult to visualize, appears to be severe centralized regurgitation of the mitral valve. 5. The tricuspid valve has moderate tricuspid regurgitation. The RVSP is estimated 52 mmHg. 6. Right atrium is moderate to severely dilated. 7. Right ventricle is moderately severely dilated. 8. Pericardium has no pericardial effusion. 9. The pulmonic valve is grossly normal. CONCLUSION: This patient has moderate dilated cardiomyopathy. There is some hint of wall motion abnormalities consistent with previous infarction. The patient has also what appears to be severe mitral regurgitation as well as mild to moderate aortic insufficiency and mild pulmonary hypertension. TRANSINT:[id number] Voice Confirmation ID: [id number] DOCUMENT ID: [id number] MARTHA MARINA MD at 0942 CC: [id number] DICTATION DATE: 03/08/18 0707 FREELANCE DIRECTOR: 03/08/18 0826 [facility] [address] [place] [address]
[~2018-03-06 20:08] MED LIST changes: +BUMEX2 MG PO
[2018-03-06 20:37] LABS: BASOPHILS 0.1 % (0-2); EOSINOPHILS 0.3 % (0-7); HEMATOCRIT 48.1 % (42.0-54.0); HEMOGLOBIN 16.1 g/dL (13.5-17.5); IMMATURE GRANULOCYTES 0.2 % (0-5); LYMPHOCYTES 6.1 % (15-50); MCHC 33.5 g/dL (31.0-37.0); MCV 89.7 fL (80.0-100.0); MEAN PLATELET VOLUME 9.7 fL (7.4-10.4); MONOCYTES 3.6 % (2-11); NEUTROPHILS 89.7 % (40-80); PLATELET COUNT 180 10x3/uL (130-400); RBC 5.36 10x6/uL (4.20-6.10); RDW 14.1 % (11.5-14.5); WBC 9.9 10x3/uL (4.8-10.8)
[2018-03-06 20:48] LABS: ALBUMIN 3.7 g/dL (3.4-5.0); ALKALINE PHOSPHATASE 81 U/L (46-116); ALT (SGPT) 21 U/L (10-68); BILIRUBIN - TOTAL 0.95 mg/dL (0.2-1.3); CALC OSMOLALITY 284 mosm/kg (275-300); CALCIUM 8.7 mg/dL (8.5-10.1); CARBON DIOXIDE 24.6 mmol/L (21.0-32.0); CHLORIDE - SERUM 102 mmol/L (98-107); CREATININE - SERUM 1.1 mg/dL (0.6-1.3); POTASSIUM - SERUM 3.5 mmol/L (3.5-5.1); PROTEIN - SERUM 7.8 g/dL (6.4-8.2); SODIUM 139 mmol/L (136-145); UREA NITROGEN 19 mg/dL (7-18); eGFR NON AFRICAN AMERICAN 69 mL/min (90-120)
[2018-03-06 20:49] LABS: GLUCOSE 183 mg/dL (74-106)
[2018-03-06 20:59] LABS: APPEARANCE CLEAR (CLEAR); BILIRUBIN 1+ (NEGATIVE); COLOR YELLOW (YELLOW); GLUCOSE NEGATIVE (NEGATIVE); KETONE MODERATE mg/dL (NEGATIVE); NITRITE NEGATIVE (NEGATIVE); PROTEIN TRACE mg/dL (NEGATIVE); SPECIFIC GRAVITY 1.015 (1.005-1.020); UROBILINOGEN NORMAL (NORMAL)
[2018-03-06 21:01] LABS: RED CELLS - URINE 0-5 /hpf (0-5); WHITE CELLS - URINE OCC /hpf (0-5)
[2018-03-06 21:04] LABS: CHOL - HDL RATIO 4.7 ratio (2.3-4.9); CHOLESTEROL, TOTAL 172 mg/dL (0-200); CKMB 0.7 U/L (0.0-3.6); CREATINE KINASE 42 UL (21-232); HDL CHOLESTEROL 37 mg/dL (32-96); LDL CHOLESTEROL 121 mg/dL (0-100); LDL-HDL RATIO 3.3 ratio (1.5-3.5); LIPASE 127 U/L (73-393); PRO BNP 1546 pg/mL (0-450); TRIGLYCERIDE 73 mg/dL (30-200)
[2018-03-06 23:36] VITALS: BP 131/71; BMI 32.0
[2018-03-07 02:30] VITALS: BP 151/71
[2018-03-07 05:00] VITALS: BP 97/50
[2018-03-07 09:07] VITALS: BP 118/64
[2018-03-07 12:51] VITALS: BP 115/62
[2018-03-07 16:41] VITALS: BP 127/67
[2018-03-07 20:00] VITALS: BP 130/67
[2018-03-08 01:00] VITALS: BP 164/101
[2018-03-08 04:00] VITALS: BP 115/63
[2018-03-08 06:19] LABS: BASOPHILS 0.1 % (0-2); EOSINOPHILS 1.4 % (0-7); HEMATOCRIT 43.6 % (42.0-54.0); HEMOGLOBIN 14.5 g/dL (13.5-17.5); IMMATURE GRANULOCYTES 0.2 % (0-5); LYMPHOCYTES 10.3 % (15-50); MCH 30.2 pg (26.0-34.0); MCHC 33.3 g/dL (31.0-37.0); MCV 90.8 fL (80.0-100.0); MEAN PLATELET VOLUME 9.4 fL (7.4-10.4); MONOCYTES 12.1 % (2-11); NEUTROPHILS 75.9 % (40-80); RDW 14.4 % (11.5-14.5); WBC 9.5 10x3/uL (4.8-10.8)
[2018-03-08 06:30] LABS: PLATELET COUNT 142 10x3/uL (130-400)
[2018-03-08 06:54] LABS: CALC OSMOLALITY 288 mosm/kg (275-300); CALCIUM 8.2 mg/dL (8.5-10.1); CARBON DIOXIDE 26.4 mmol/L (21.0-32.0); CHLORIDE - SERUM 103 mmol/L (98-107); CREATININE - SERUM 0.9 mg/dL (0.6-1.3); GLUCOSE 195 mg/dL (74-106); POTASSIUM - SERUM 3.5 mmol/L (3.5-5.1); SODIUM 141 mmol/L (136-145); UREA NITROGEN 20 mg/dL (7-18); eGFR NON AFRICAN AMERICAN 87 mL/min (90-120)
[2018-03-08 11:29] VITALS: BP 112/69
[2018-03-08 12:41] VITALS: BMI 32.1
[2018-03-08 15:34] VITALS: Ht 182.9 cm; Wt 102.0 kg
[2018-03-08 16:15] VITALS: BP 112/65
[2018-03-08 20:03] VITALS: BP 119/65
[2018-03-09] VITALS: BP 137/64
[2018-03-09 04:00] VITALS: BP 130/68
[2018-03-09 06:09] LABS: BASOPHILS 0.1 % (0-2); EOSINOPHILS 2.2 % (0-7); HEMATOCRIT 42.4 % (42.0-54.0); HEMOGLOBIN 13.9 g/dL (13.5-17.5); IMMATURE GRANULOCYTES 0.1 % (0-5); LYMPHOCYTES 17.9 % (15-50); MCH 29.3 pg (26.0-34.0); MCHC 32.8 g/dL (31.0-37.0); MCV 89.5 fL (80.0-100.0); MEAN PLATELET VOLUME 10.2 fL (7.4-10.4); MONOCYTES 13.7 % (2-11); PLATELET COUNT 163 10x3/uL (130-400); RBC 4.74 10x6/uL (4.20-6.10); WBC 7.7 10x3/uL (4.8-10.8)
[2018-03-09 06:48] LABS: CALC OSMOLALITY 276 mosm/kg (275-300); CALCIUM 8.5 mg/dL (8.5-10.1); CARBON DIOXIDE 24.4 mmol/L (21.0-32.0); CHLORIDE - SERUM 101 mmol/L (98-107); CREATININE - SERUM 0.9 mg/dL (0.6-1.3); POTASSIUM - SERUM 3.1 mmol/L (3.5-5.1); SODIUM 138 mmol/L (136-145); UREA NITROGEN 19 mg/dL (7-18); eGFR NON AFRICAN AMERICAN 87 mL/min (90-120)
[2018-03-09 06:49] LABS: GLUCOSE 77 mg/dL (74-106)
[2018-03-09 07:43] VITALS: BP 127/90
[2018-03-09 11:21] VITALS: BP 128/68
[2018-03-09 20:00] VITALS: BP 105/77
[2018-03-10] VITALS: BP 135/71
[2018-03-10 04:00] VITALS: BP 119/70
[2018-03-10 06:14] LABS: BASOPHILS 0.3 % (0-2); EOSINOPHILS 2.1 % (0-7); HEMATOCRIT 45.1 % (42.0-54.0); IMMATURE GRANULOCYTES 0.1 % (0-5); LYMPHOCYTES 15.3 % (15-50); MCH 29.7 pg (26.0-34.0); MCHC 33.3 g/dL (31.0-37.0); MCV 89.3 fL (80.0-100.0); MONOCYTES 16.2 % (2-11); PLATELET COUNT 183 10x3/uL (130-400); RBC 5.05 10x6/uL (4.20-6.10); RDW 13.9 % (11.5-14.5); WBC 9.4 10x3/uL (4.8-10.8)
[2018-03-10 06:27] LABS: CALCIUM 8.8 mg/dL (8.5-10.1); CHLORIDE - SERUM 101 mmol/L (98-107); CREATININE - SERUM 0.9 mg/dL (0.6-1.3); POTASSIUM - SERUM 3.1 mmol/L (3.5-5.1); SODIUM 140 mmol/L (136-145); UREA NITROGEN 19 mg/dL (7-18); eGFR NON AFRICAN AMERICAN 87 mL/min (90-120)
[2018-03-10 06:29] LABS: CALC OSMOLALITY 282 mosm/kg (275-300); CARBON DIOXIDE 30.6 mmol/L (21.0-32.0); GLUCOSE 140 mg/dL (74-106)
[2018-03-10 09:10] VITALS: BP 129/77
[2018-03-10 12:00] VITALS: BP 117/68
[2018-03-10 16:37] VITALS: BP 113/71
[2018-03-10 21:08] VITALS: BP 100/62
[2018-03-11] VITALS: BP 111/57; BP 132/59
[2018-03-11 04:00] VITALS: BP 132/59
[2018-03-11 05:41] LABS: BASOPHILS 0.7 % (0-2); EOSINOPHILS 2.8 % (0-7); HEMATOCRIT 43.2 % (42.0-54.0); HEMOGLOBIN 14.6 g/dL (13.5-17.5); IMMATURE GRANULOCYTES 0.2 % (0-5); LYMPHOCYTES 28.1 % (15-50); MCH 29.8 pg (26.0-34.0); MCHC 33.8 g/dL (31.0-37.0); MCV 88.2 fL (80.0-100.0); MONOCYTES 12.2 % (2-11); PLATELET COUNT 191 10x3/uL (130-400); RDW 13.6 % (11.5-14.5); WBC 8.6 10x3/uL (4.8-10.8)
[2018-03-11 06:10] LABS: CALCIUM 8.7 mg/dL (8.5-10.1); CARBON DIOXIDE 27.5 mmol/L (21.0-32.0); CHLORIDE - SERUM 103 mmol/L (98-107); CREATININE - SERUM 0.8 mg/dL (0.6-1.3); SODIUM 142 mmol/L (136-145); UREA NITROGEN 15 mg/dL (7-18); eGFR NON AFRICAN AMERICAN > 90 mL/min (90-120)
[2018-03-11 06:28] LABS: CALC OSMOLALITY 280 mosm/kg (275-300)
[2018-03-11 06:29] LABS: GLUCOSE 43 mg/dL (74-106); POTASSIUM - SERUM 2.6 mmol/L (3.5-5.1)
[2018-03-11 08:27] VITALS: BP 109/63
[2018-03-11 13:12] VITALS: BP 109/59
[2018-03-11 16:51] VITALS: BP 118/72
[2018-03-11 20:33] VITALS: BP 124/66
[2018-03-12 01:00] VITALS: BP 109/66
[2018-03-12 04:00] VITALS: BP 124/64
[2018-03-12 04:55] LABS: BASOPHILS 0.7 % (0-2); EOSINOPHILS 3.2 % (0-7); HEMATOCRIT 41.6 % (42.0-54.0); IMMATURE GRANULOCYTES 0.4 % (0-5); MCH 29.8 pg (26.0-34.0); MCHC 33.7 g/dL (31.0-37.0); MCV 88.5 fL (80.0-100.0); MONOCYTES 13.3 % (2-11); NEUTROPHILS 56.4 % (40-80); PLATELET COUNT 194 10x3/uL (130-400); RDW 13.5 % (11.5-14.5); WBC 8.3 10x3/uL (4.8-10.8)
[2018-03-12 05:05] LABS: CALC OSMOLALITY 287 mosm/kg (275-300); CALCIUM 8.4 mg/dL (8.5-10.1); CARBON DIOXIDE 28.6 mmol/L (21.0-32.0); CHLORIDE - SERUM 104 mmol/L (98-107); CREATININE - SERUM 0.9 mg/dL (0.6-1.3); POTASSIUM - SERUM 3.2 mmol/L (3.5-5.1); SODIUM 142 mmol/L (136-145); UREA NITROGEN 14 mg/dL (7-18); eGFR NON AFRICAN AMERICAN 87 mL/min (90-120)
[2018-03-12 05:11] LABS: GLUCOSE 178 mg/dL (74-106)
[2018-03-12 08:39] VITALS: BP 108/66
== END 2018-03-12 15:11 | disposition home or self-care (01) | DRG 687 ==
LOC: D.ER 20:08 → D.M2 22:40 → OBSVTIME 22:57 → D.M2 03-08 13:58
PROVIDERS: Family Medicine; Internal Medicine Nephrology
DX: C64.2 Malignant neoplasm of left kidney, except renal pelvis (principal); I50.22 Chronic systolic (congestive) heart failure; N17.9 Acute kidney failure, unspecified; I25.10 Atherosclerotic heart disease of native coronary artery without angina pectoris; E11.65 Type 2 diabetes mellitus with hyperglycemia; I11.0 Hypertensive heart disease with heart failure; K81.1 Chronic cholecystitis; I25.5 Ischemic cardiomyopathy; F41.9 Anxiety disorder, unspecified; E03.9 Hypothyroidism, unspecified; E78.5 Hyperlipidemia, unspecified; K76.89 Other specified diseases of liver; Z95.5 Presence of coronary angioplasty implant and graft; Z95.810 Presence of automatic (implantable) cardiac defibrillator; Z95.1 Presence of aortocoronary bypass graft; Z87.891 Personal history of nicotine dependence

== ENCOUNTER 2018-05-05 05:45 | Inpatient (IN) | payer MEDICARE ==
[2018-05-04 10:57] LABS: BASOPHILS 0.4 % (0-2); EOSINOPHILS 2.6 % (0-7); HEMATOCRIT 47.6 % (42.0-54.0); IMMATURE GRANULOCYTES 0.3 % (0-5); LYMPHOCYTES 28.7 % (15-50); MCH 30.3 pg (26.0-34.0); MCHC 33.6 g/dL (31.0-37.0); MCV 90.2 fL (80.0-100.0); MEAN PLATELET VOLUME 9.2 fL (7.4-10.4); MONOCYTES 9.3 % (2-11); NEUTROPHILS 58.7 % (40-80); PLATELET COUNT 200 10x3/uL (130-400); RBC 5.28 10x6/uL (4.20-6.10); RDW 14.3 % (11.5-14.5); WBC 7.7 10x3/uL (4.8-10.8)
[2018-05-04 11:14] LABS: APTT 28.1 SECONDS (22.8-39.4); INR 1.04 (0.85-1.17); PROTIME 13.2 SECONDS (11.6-15.0)
[2018-05-04 11:18] LABS: CALC OSMOLALITY 280 mosm/kg (275-300); CARBON DIOXIDE 31.2 mmol/L (21.0-32.0); CHLORIDE - SERUM 104 mmol/L (98-107); CREATININE - SERUM 0.9 mg/dL (0.6-1.3); POTASSIUM - SERUM 3.8 mmol/L (3.5-5.1); SODIUM 141 mmol/L (136-145); UREA NITROGEN 11 mg/dL (7-18); eGFR NON AFRICAN AMERICAN 87 mL/min (90-120)
[2018-05-04 11:19] LABS: GLUCOSE 124 mg/dL (74-106)
[~2018-05-05] VITALS: Ht 182.9 cm; Wt 103.4 kg
--- NOTE | ~2018-05-05 | OP ---
PATIENT NAME: CHARLEY VASQUEZ JR MEDICAL RECORD: [id number] :42 LOCATION:[facility] [place] [id number] ADMISSION DATE:05/05/18 SURGEON: LARRY PAGE MD DATE OF OPERATION: 05/05/2018 CO-SURGEON: Larry Page MD CO-SURGEON: Larry Coughlin MD ANESTHESIA: General anesthesia by Collins Alvarez CRNA PREOPERATIVE DIAGNOSIS: Left renal mass, upper pole 4 cm, stage T1a N0 M0. PROCEDURE: Hand-assisted laparoscopic left radical nephrectomy. FINDINGS: Left upper pole renal mass. SPECIMENS: Left kidney, adrenal, and ureter within Gerota's fascia. ESTIMATED BLOOD LOSS: 75 mL. CLINICAL HISTORY: This is a 77-year-old male, who was admitted to the hospital with atypical chest pain, nausea, and vomiting. He had a cardiac workup, which was negative. He had a CT chest angiogram, which showed no lung masses and no pulmonary embolism. However, the CT did show biliary sludge and an upper pole left renal mass, which was solid and enhancing. His serum creatinine is 0.9. He then had a CT of the abdomen and pelvis without and with IV contrast which showed an enhancing renal mass. This is adjacent to the renal vessels and it penetrates the entire depth of the renal cortex all the way to the collecting system. Thus this is not a candidate for a partial nephrectomy. There were no interaortocaval node seen and the renal vein was clear of tumor. He also had a HIDA scan, which showed a biliary ejection fraction of 9%, which is consistent with chronic cholecystitis. His liver enzymes are normal. Whole body bone scan shows no signs of metastatic disease. He already had the CT angiogram, which showed no lung metastasis. He thus comes for a left radical nephrectomy for presumed left renal cell carcinoma stage T1a N0 M0. He also will be having a cholecystectomy at the same time. He is a former smoker, 1 pack per day for 15 years. He has had a previous median sternotomy for 5-vessel coronary artery bypass graft. He also had coronary stents in the past as well as the pacemaker defibrillator inserted. Dr. Mills, his advertising dispatch clerk gave cardiac clearance for the surgery. I will be doing the laparoscopic hand-assisted left nephrectomy with Dr. Coughlin as a cosurgeon. He will be doing the surgery with me due to the difficulty of the case. Dr. Coughlin will then proceed to perform a laparoscopic cholecystectomy. DESCRIPTION OF PROCEDURE: The patient was given an art line and central venous line. He was placed into a supine position, and given induction of general anesthesia. He is ALLERGIC TO PENICILLIN. He was given Levaquin IV rehabilitation aide/scheduler to the OR. A Dominguez catheter was inserted into the bladder and put to bag drainage. The patient was placed supine on a beanbag. He was then placed into a lateral decubitus position, so that he was 45 degrees with the left side up. The beanbag was then deflated to hold the position. We made sure that all pressure points were padded. His abdomen was shaved, prepped, and draped. The hand access port was 7.5 mm long in incision. It was in the midline of the abdomen just superior to the umbilicus. The camera port was placed just inferior to the OPERATIVE REPORT [id number] CHARLEY VASQUEZ JR xiphoid in the midline of the abdomen. Finally, we had a 12-mm working port just lateral to the lateral margin of the rectus in the left lower quadrant of the abdomen. The midline incision was made and we got down through the middle of the rectus fascia and into the peritoneum. The Gelport hand access port was placed. We insufflated the abdomen with 15 mmHg of carbon dioxide. The camera was placed. Our dissection proceeded with mobilization of the colon along its lateral margin on the line of Toldt. We went down from the pelvic brim all the way up to the splenic flexure. We did this portion with the Harmonic scalpel. As we got down to the splenic renal ligaments, they were taken initially with the Harmonic scalpel. However, as we got closer with the tissues in order to prevent injury either to the spleen or the bowel by thermal injury, we used Metzenbaum scissors to take down the ligament. The splenocolic ligaments were also taken down. In this way, the colon was able to be mobilized off the anterior surface of the kidney by mobilizing it inferiorly and medially. In the mesentery, we were able to see the tail of the pancreas. We bluntly dissected all this mesentery away from the anterior surface of the kidney and away from the hilum of the kidney. We continued to mobilize the kidney bluntly by mobilizing posterior to the kidney. The superior attachments to the spleen were completely divided using either the Harmonic scalpel or the ordinary Metzenbaum scissors. Finally, going inferiorly and sweeping from lateral to medial, we identified the ureter. This was clipped multiple times and divided between the clips. Sleeping more medially, we identified the Gerota's fascia overlying the aorta and renal vessels. This Gerota's fascia was picked up and incised using the Harmonic scalpel. We were then able to bluntly dissect our way to the hilum of the renal pelvis. We could feel the palpations of the renal artery. In fact, when we flipped the kidney over, we could easily see the renal vein and renal artery and the hilum. Using an Endo-DAMION with vascular load 45 mm, we first took the inferior portion of the renal pedicle, which contained the gonadal vein. Once this was fired, we managed to get a DAMION 60 with a vascular load across the entire renal pedicle including the renal vein and renal artery. This was fired. Finally, the 45 was again fired to take the adrenal. The adrenal goes with the specimen. The kidney with its tumor and associated Gerota's fascia was quite massive. We had to place an EndoCatch bag for a pulmonary lobe resection in order to fit the kidney into the bag. Still the kidney would not come out with the hand access port in place. Therefore, we had to remove the hand access port. With a lot of pulling and with the tumor within the EndoCatch bag, we finally managed to get the specimen out of the abdomen. It will be sent to pathology in formalin. We checked the renal bed and there were no signs of active bleeding. Two large sheets of Surgicel Nu-Knit were placed in the renal fossa. They will help with hemostasis. At this point, the nephrectomy was completed. Dr. Coughlin will rearrange things to suit the laparoscopic cholecystectomy to come. TRANSINT:[id number] Voice Confirmation ID: [id number] DOCUMENT ID: [id number] LARRY PAGE MD at 1528 CC: [id number] DICTATION DATE: 05/05/18 1120 RESPIRATORY DIRECTOR: 05/05/18 1153 ADM IN [facility] [address] [place] [address]
[~2018-05-05 05:45] MED LIST changes: +NOVOLOG100 U/M1 SC
[2018-05-05 06:42] VITALS: BP 116/57; BMI 30.6
[2018-05-05 14:10] VITALS: BP 137/61
[2018-05-05 17:26] VITALS: BP 137/61; BMI 31.0
[2018-05-05 20:00] VITALS: BP 143/75
[2018-05-05 23:49] VITALS: BP 113/59
[2018-05-06 04:00] VITALS: BP 125/69
[2018-05-06 06:05] LABS: POTASSIUM - SERUM 4.9 mmol/L (3.5-5.1)
[2018-05-06 08:25] VITALS: BP 128/67
[2018-05-06 11:26] LABS: BASOPHILS 0.2 % (0-2); EOSINOPHILS 0.4 % (0-7); HEMATOCRIT 46.5 % (42.0-54.0); HEMOGLOBIN 15.3 g/dL (13.5-17.5); IMMATURE GRANULOCYTES 0.2 % (0-5); LYMPHOCYTES 12.6 % (15-50); MCH 30.4 pg (26.0-34.0); MCHC 32.9 g/dL (31.0-37.0); MEAN PLATELET VOLUME 10.2 fL (7.4-10.4); MONOCYTES 13.8 % (2-11); NEUTROPHILS 72.8 % (40-80); PLATELET COUNT 193 10x3/uL (130-400); RBC 5.04 10x6/uL (4.20-6.10); RDW 14.7 % (11.5-14.5)
[2018-05-06 11:31] LABS: MCV 92.3 fL (80.0-100.0); WBC 12.4 10x3/uL (4.8-10.8)
[2018-05-06 11:38] LABS: ANION GAP 17.3 mmol/L (8-16); CALCIUM 8.7 mg/dL (8.5-10.1); CARBON DIOXIDE 20.6 mmol/L (21.0-32.0); CREATININE - SERUM 1.7 mg/dL (0.6-1.3)
[2018-05-06 12:20] VITALS: Ht 182.9 cm; Wt 103.4 kg
[2018-05-06 12:38] VITALS: BP 126/58
[2018-05-06 19:43] VITALS: BP 129/64
[2018-05-07] VITALS: BP 124/60
[2018-05-07 04:00] VITALS: BP 120/58
[2018-05-07 08:17] VITALS: BP 123/69
[2018-05-07 08:58] LABS: ANION GAP 13.1 mmol/L (8-16); CALCIUM 8.9 mg/dL (8.5-10.1); CARBON DIOXIDE 25.2 mmol/L (21.0-32.0); CREATININE - SERUM 1.6 mg/dL (0.6-1.3); POTASSIUM - SERUM 4.3 mmol/L (3.5-5.1)
[2018-05-07 09:02] LABS: BASOPHILS 0.2 % (0-2); EOSINOPHILS 2.9 % (0-7); HEMATOCRIT 42.9 % (42.0-54.0); HEMOGLOBIN 14.1 g/dL (13.5-17.5); IMMATURE GRANULOCYTES 0.3 % (0-5); LYMPHOCYTES 12.1 % (15-50); MCH 29.9 pg (26.0-34.0); MCHC 32.9 g/dL (31.0-37.0); MCV 90.9 fL (80.0-100.0); MEAN PLATELET VOLUME 9.5 fL (7.4-10.4); NEUTROPHILS 72.5 % (40-80); PLATELET COUNT 168 10x3/uL (130-400); RBC 4.72 10x6/uL (4.20-6.10); RDW 14.5 % (11.5-14.5); WBC 15.3 10x3/uL (4.8-10.8)
[2018-05-07 12:26] VITALS: BP 106/50
[2018-05-07 15:43] VITALS: BP 109/63
[2018-05-07 20:00] VITALS: BP 111/63
[2018-05-08] VITALS: BP 119/48
[2018-05-08 05:43] VITALS: BP 116/56
[2018-05-08 06:21] LABS: BASOPHILS 0.1 % (0-2); EOSINOPHILS 4.4 % (0-7); HEMATOCRIT 40.2 % (42.0-54.0); HEMOGLOBIN 13.3 g/dL (13.5-17.5); IMMATURE GRANULOCYTES 0.2 % (0-5); LYMPHOCYTES 12.7 % (15-50); MCH 29.6 pg (26.0-34.0); MCHC 33.1 g/dL (31.0-37.0); MCV 89.5 fL (80.0-100.0); MEAN PLATELET VOLUME 9.8 fL (7.4-10.4); MONOCYTES 12.9 % (2-11); NEUTROPHILS 69.7 % (40-80); PLATELET COUNT 188 10x3/uL (130-400); RBC 4.49 10x6/uL (4.20-6.10); WBC 13.4 10x3/uL (4.8-10.8)
[2018-05-08 06:48] LABS: ANION GAP 14.5 mmol/L (8-16); CALCIUM 8.9 mg/dL (8.5-10.1); CARBON DIOXIDE 25.4 mmol/L (21.0-32.0); CREATININE - SERUM 1.4 mg/dL (0.6-1.3); POTASSIUM - SERUM 3.9 mmol/L (3.5-5.1)
[2018-05-08 08:13] VITALS: BP 122/55
[2018-05-08] MEDS ORDERED: HYDROCODONE-APA1 TAB PO (12:31)
== END 2018-05-08 13:34 | disposition home or self-care (01) | DRG 657 ==
LOC: D.MS 05:45 → D.SDCHOLD 05:45 → D.MS 14:07
PROVIDERS: Anesthesiology; Surgery; Urology
PROC: BF121ZZ Fluoroscopy of Gallbladder using Low Osmolar Contrast (ICD-10-PCS; 2018-05-05)
PROC: 0TT14ZZ Resection of Left Kidney, Percutaneous Endoscopic Approach (ICD-10-PCS; principal; 2018-05-05 08:00)
PROC: 0FT44ZZ Resection of Gallbladder, Percutaneous Endoscopic Approach (ICD-10-PCS; 2018-05-05 08:00)
PROC: 0FB04ZX Excision of Liver, Percutaneous Endoscopic Approach, Diagnostic (ICD-10-PCS; 2018-05-05 08:00)
DX: C64.2 Malignant neoplasm of left kidney, except renal pelvis (principal); K56.7 Ileus, unspecified; K81.1 Chronic cholecystitis; E11.9 Type 2 diabetes mellitus without complications; I11.9 Hypertensive heart disease without heart failure; F17.200 Nicotine dependence, unspecified, uncomplicated; Z95.1 Presence of aortocoronary bypass graft; Z95.810 Presence of automatic (implantable) cardiac defibrillator; Z95.5 Presence of coronary angioplasty implant and graft

== ENCOUNTER → 2018-05-18 16:01 | Outpatient (CLI) | payer MEDICARE ==
[2018-05-06 12:20] VITALS: BMI 30.9
[~2018-05-18 16:01] MED LIST changes: +HYDROCODONE-APA1 TAB PO
== END | disposition home or self-care (01) ==
LOC: D.LABREF 16:01
DX: B99.9 Unspecified infectious disease (principal); Z90.5 Acquired absence of kidney

== ENCOUNTER → 2019-01-14 13:19 | Outpatient (CLI) | payer MEDICARE ==
[2018-05-06 12:20] VITALS: BMI 30.9
== END | disposition home or self-care (01) ==
LOC: D.RAD 13:19
PROVIDERS: ATTEND Orthopaedic Surgery
DX: M25.562 Pain in left knee (principal)

== ENCOUNTER → 2019-05-25 07:59 | Outpatient (CLI) | payer MEDICARE ==
[2018-05-06 12:20] VITALS: BMI 30.9
[2019-05-25 08:43] LABS: CREATININE - SERUM 1.5 mg/dL (0.6-1.3)
== END | disposition home or self-care (01) ==
LOC: D.CT 07:59
PROVIDERS: ATTEND Urology
DX: C64.9 Malignant neoplasm of unspecified kidney, except renal pelvis (principal)

== ENCOUNTER 2019-11-29 08:42 | Outpatient (CLI) | payer MEDICARE ==
[~2019-11-29] VITALS: Ht 182.9 cm; Wt 104.5 kg
--- NOTE | ~2019-11-29 | HEMODYNAMI ---
PATIENT:CHARLEY VASQUEZ JR MEDICAL RECORD: [id number] : 42 LOCATION:[facility] ADMISSION DATE: 11/29/19 Generatedon:11/29/201911:44 Patient name: CHARLEY VASQUEZ Patient #: [id number] SSN: : 1940 Date of study: 11/29/2019 Page: Of Hemodynamic Procedure Report Patient Data Patient Demographics Procedure consent was obtained First Name: CHARLEY Gender: Male Last Name: PEDRO Suffix: Jr Rao Initial: Vonda : 1940 Patient #: [id number] Age: 79 year(s) Race: Unknown Additional ID: [id number] Contact details [address]: [address] [place] [address] State: [place] City: [place] Zip code: [address] Past Medical History Allergies Allergen Reaction Date Comments Reported Penicillins 05/08/2017 Penicillins 11/29/2019 Admission Admission Data Admission Date: 11/29/2019 Admission Time: 8:42 Arrival Date: 11/29/2019 Arrival Time: 0:00 Height (in.): 71.65 BSA: 2.26 (m2) Height (cm.): 182 BMI: 31.7 (kg/m2) Weight (lbs.): 231.49 Weight (kg.): 105 Lab Results Lab Result Date: 11/29/2019 Lab Result Time: 0:00 Biochemistry Name Units Result Min Max BUN mg/dl 33 --(----)-* 7 18 Creatinine mg/dl 1.5 --(----)-* 0.6 1.3 eGFR ml/min 48 *-(----)-- 90 120 NONAFRICAN CBC Name Units Result Min Max Hematocrit % 43.6 --(*---)-- 42 54 Hemoglobin g/dl 14.2 --(*---)-- 13.5 17.5 Procedure Procedure Types Cath Procedure Diagnostic Procedure LHC LHC w/Coronaries w/Grafts Procedure Description Procedure Date Procedure Date: 11/29/2019 Procedure Start Time: 11:28 Procedure End Time: 11:41 Procedure Staff Name Function Claude Mills MD Performing Physician Kizzy Norton RT Monitor Taryn Morrison RT Scrub Gerardo Villafuerte RN Nurse Procedure Data Cath Procedure Fluoroscopy Diagnostic fluoroscopy Total fluoroscopy Time: 3.2 time: 3.2 min min Diagnostic fluoroscopy Total fluoroscopy dose: 761 dose: 761 mGy mGy Contrast Material Contrast Material Type Amount (ml) Isovue 300 80 Entry Location Entry Primary Successful Side Size Upsize Upsize Entry Closure Succes sful Closure Location (Fr) 1 (Fr) 2 (Fr) Remarks Device Remarks Femoral Right 5 Fr Exoseal artery Estimated blood loss: 5 ml Diagnostic catheters Device Type Used For End Catheter Placement MULTIPACK Pigtail 5 Fr Procedure catheter MULTIPACK JL 4.0 5Fr Procedure catheter DIAGNOSTIC JL 6 5Fr Procedure catheter ([id number]) MULTIPACK 3DRC 5Fr Procedure catheter DIAGNOSTIC AR2 MOD 5 Fr Procedure catheter ([id number]) Procedure Complications No complications Procedure Medications Medication Administration Route Dosage 0.9% NaCl I.V. 100 ml/hr Oxygen etCO2 Nasal cannula 2 l/min Heparin Flush Bag added to field 2 bags (1000units/500ml NS) Lidocaine 2% added to field 20 Versed I.V. 2 mg Fentanyl I.V. 50 mcg Dobutamine I.V. drip 5 mcg/kg/min (500mg/250ml D5W) Versed I.V. 1 mg Hemodynamics Rest BSA: 2.26 (m2) HGB: 14.2 (g/dl) O2 Consumption: Estimated: 262 (ml/min) O2 Consu mption indexed: Estimated:115.93 (ml/min/m) Heart Rate: 73 (bpm) Snapshots Pre Cath Intra NCS Post Cath Vital Signs Time Heart Resp SPO2 etCO2 NIBP Rhythm Pain Sedation Rate (ipm) (%) (mmHg) (mmHg) Status Level (bpm) 10:54:16 70 15 96 0 124/65(96) Paced 0 (11) 10(A) , No pain 10:58:26 75 21 97 19.8 115/63(97) Paced 0 (11) 10(A) , No pain 11:02:38 69 17 88 21.4 117/62(94) Paced 0 (11) 10(A) , No pain 11:06:56 68 18 97 0 118/59(93) Paced 0 (11) 10(A) , No pain 11:11:14 69 17 97 0 112/58(90) Paced 0 (11) 10(A) , No pain 11:15:28 70 19 93 14.5 116/57(93) Paced 0 (11) 10(A) , No pain 11:19:42 69 17 96 22.1 114/60(86) Paced 0 (11) 10(A) , No pain 11:23:58 73 16 98 0 119/58(83) Paced 0 (11) 10(A) , No pain 11:28:14 70 17 98 27.5 119/57(94) Paced 0 (11) 10(A) , No pain 11:32:28 79 20 93 23.7 111/61(85) Paced 0 (11) 9(A) , No pain 11:36:46 73 18 94 25.2 108/50(82) Paced 0 (11) 9(A) , No pain 11:41:02 74 19 94 15.2 110/55(76) Paced 0 (11) 10(A) , No pain Medications Time Medication Route Dose Verified Delivered Reason Notes Effectiveness by by 10:57:47 0.9% NaCl I.V. 100 ml/hr Gerardo Gerardo Per Christo Villafuerte physician RN RN 10:58:05 Oxygen etCO2 2 l/min Gerardo Gerardo for low 02 Nasal Lorigan Lorigan sats cannula RN RN 10:58:16 Heparin Flush added 2 bags Gerardo Gerardo used for Bag to Lorigan Christo procedure (1000units/500ml field RN RN NS) 10:58:25 Lidocaine 2% added 20ml vial Gerardo Gerardo for local to Lorigan Lorigan anesthetic field RN RN 11:29:37 Versed I.V. 2 mg Gerardo Gerardo for Lorigan Lorigan sedation RN RN 11:29:45 Fentanyl I.V. 50 mcg Gearrdo Gerardo for Lorigan Lorigan sedation RN RN 11:32:39 Versed I.V. 1 mg Gerardo Gerardo for Lorigan Lorigan sedation RN RN 11:36:15 Dobutamine I.V. 5 Gerardo Gerardo Per (500mg/250ml drip mcg/kg/min Christo Villafuerte physician D5W) RN electric dolly operator Log Time Note 10:40:53 Gerardo Villafuerte RN sent for patient. Start room use. 10:42:52 Informed consent obtained and on chart 10:43:52 Time tracking: Regular hours (M-F 7:00 - 5:00) 10:44:02 Procedure Status Elective Heart Cath (OP). 10:44:12 H&P Date Dictated: 11/28/2019 Within 30 days and on chart., H&P Addendum completed by physician on day of procedure. (MUST COMPLETE FOR ALL OUTPATIENTS). 10:44:18 Patient allergic to Penicillins 10:45:11 Patient Weight : 231.49 lbs 10:45:14 Patient Height : 71.65 inches 10:45:17 Arrival Date: 11/29/2019 12:00:00 AM 10:48:55 Lab Result : Creatinine 1.5 mg/dl 10:48:55 Lab Result : BUN 33 mg/dl 10:48:55 Lab Result : eGFR NONAFRICAN 48 ml/min 10:48:55 Lab Result : Hemoglobin 14.2 g/dl 10:48:55 Lab Result : Hematocrit 43.6 % 10:49:06 Patient received from Pre/Post Procedure Room to CCL 1 Alert and oriented. Tansferred to table in Supine position. 10:49:07 Warm blankets applied, and omy hugger turned on for patient comfort. 10:49:08 Correct patient and procedure confirmed by team. 10:49:09 ECG and BP/O2 sat monitors applied to patient. 10:51:58 Snore? Yes 10:52:02 Sleep apnea? No 10:52:07 Deviated septum? No 10:52:10 Opens mouth fully? Yes 10:52:12 Sticks out tongue? Yes 10:52:20 Airway obstruction? No ? 10:52:28 Dentures? No ? 10:53:05 Vital chart was started 10:53:11 Baseline sample Acquired. 10:53:42 Rhythm: paced 10:54:12 Baseline sample Acquired. 10:54:15 Full Disclosure recording started 10:54:16 Pre-procedure instructions explained to patient. 10:54:16 Pre-op teaching completed and patient verbalized understanding. 10:54:17 Family in patients room. 10:54:18 Patient NPO since Midnight. 10:54:21 Is the patient allergic to Iodine/contrast media? No. 10:54:24 Is the patient allergic to Iodine/contrast media? No. 10:54:35 Is patient on blood thinner?No 10:54:37 Patient diabetic? Yes. 10:54:38 If diabetic: On Metformin? No 10:54:49 Previous problem with sedation/anesthesia? No ? 10:54:53 Pre procedure: right dorsailis pedis pulse 2+ Normal; easily identifiable; not easily obliterated 10:55:00 Patient pain scale 0/10 SHORTNESS OF BREATH. 10:55:06 IV patent on arrival in left forearm with 0.9% NaCl at [facility]. 10:55:08 Lab results completed and on chart. 10:57:47 0.9% NaCl 100 ml/hr I.V. was administered by Gerardo Villafuerte RN; Per physician; Verbal order read back and verified. 10:58:05 Oxygen 2 l/min etCO2 Nasal cannula was administered by Gerardo Villafuerte RN; for low 02 sats; Verbal order read back and verified. 10:58:16 Heparin Flush Bag (1000units/500ml NS) 2 bags added to field was administered by Gerardo Villafuerte RN; used for procedure; Verbal order read back and verified. 10:58:25 Lidocaine 2% 20ml vial added to field was administered by Gerardo Villafuerte RN; for local anesthetic; Verbal order read back and verified. 10:58:48 Risk of Mortality: .1 10:58:50 Risk of blood transfusion: .1 10:58:53 Risk of NENA: .9 10:58:57 Right groin area was prepped with chlora-prep and draped in sterile fashion 10:58:58 Alarms reviewed by R. N. 10:58:58 Sharps counted by scrub and verified by R.N. 10:59:04 Procedure type changed to Cath procedure, Diagnostic procedure, LHC, LHC w/Coronaries w/Grafts 11:06:00 Use device set Femoral Dx 11:06:01 ACIST Syringe (68211) opened to sterile field. 11:06:02 Bag Decanter () opened to sterile field. 11:06:03 ACIST Hand Control (77388) opened to sterile field. 11:06:03 ACIST Manifold (29158) opened to sterile field. 11:06:05 Tegaderm 4 x 4 (1626W) opened to sterile field. 11:06:06 Medline Cath Pack ([id number]) opened to sterile field. 11:06:07 DIAGNOSTIC Multipack 5Fr catheter set (GY4397) opened to sterile field. 11:06:08 SHEATH 5FR [place] (YJC291) opened to sterile field. 11:06:08 EMERALD Guide Wire (243-127) opened to sterile field. 11:07:44 Zero performed for pressure channel P1 11::51 Zero performed for pressure channel P1 11:: --------ALL STOP TIME OUT------ :: Final Timeout: patient, procedure, and site verified with staff and physician. All members of the team are in agreement. 11:27:10 Right groin site verified by team. 11:27:13 Fire Safety Assessment: A--An alcohol-based skin anteseptic being used preoperatively., C--Open oxygen or nitrous oxide is being used., D--An ESU, laser, or fiber-optic light is being used. 11:27:15 Physical assessment completed. ASA score P 2 - A patient with mild systemic disease as per Claude Mills MD. 11:27:46 3a) 45-59 Moderately reduced kidney function. 11:27:49 Maximum allowable contrast dose (3.7 X eGFR X 0.75)133 ml. 11:27:53 Sedation plan: IV Moderate Sedation Medication:Versed, Fentanyl 11:28:27 Procedure started. 11:28:54 Local anesthetic to right femoral artery with Lidocaine 2% by Claude Mills MD.INITIAL ACCESS ONLY 11:29:37 Versed 2 mg I.V. was administered by Gerardo Villafuerte RN; for sedation; Verbal order read back and verified. 11:29:45 Fentanyl 50 mcg I.V. was administered by Gerardo Villafuerte RN; for sedation; Verbal order read back and verified. 11:29:57 A 5 Fr sheath was inserted into the Right Femoral artery 11:30:05 A MULTIPACK Pigtail 5 Fr catheter was advanced over the wire and used for Procedure. 11:30:07 LV gram done using SUAREZ 11::09 Injector settings: Ml/sec: 10, Volume: 20, 11:30:39 EF : 20 % 11:30:41 Catheter removed. 11:30:50 A MULTIPACK JL 4.0 5Fr catheter was advanced over the wire and used for Procedure. 11:31:15 Catheter exchanged over wire. 11:31:39 UNABLE TO ENGAGE LCA 11:31:41 A DIAGNOSTIC JL 6 5Fr catheter ([id number]) was advanced over the wire and used for Procedure. 11:32:36 LCA angiography performed. 11:32:39 Versed 1 mg I.V. was administered by Gerardo Villafuerte RN; for sedation; Verbal order read back and verified. 11:32:42 Catheter removed. 11:32:47 A MULTIPACK 3DRC 5Fr catheter was advanced over the wire and used for Procedure. 11:34:31 OCONNELL to LAD angiography performed. 11:35:05 Catheter removed. 11:35:11 A DIAGNOSTIC AR2 MOD 5 Fr catheter ([id number]) was advanced over the wire and used for Procedure. 11:35:27 SVG to Circ angiography performed. 11:35:48 SVG to RCA angiography performed. 11:36:15 Dobutamine (500mg/250ml D5W) 5 mcg/kg/min I.V. drip was administered by Gerardo Villafuerte RN; Per physician; Verbal order read back and verified. 11:36:20 SVG to Diag angiography performed. 11:36:31 SVG to Ramus angiography performed. 11:36:32 Catheter removed. 11:36:57 EXOSEAL 5Fr (EX500) opened to sterile field. 11:37:23 Sheath removed intact; hemostasis achieved with Exoseal to the Right Femoral artery. 11:38:18 Procedure ended.(Physican Out) 11:39:19 Fluoroscopy time 03.20 minutes. 11:39:23 Flurop Dose total: 761 11:39:23 Fluoroscopy dose: 761 mGy 11:39:30 Dose Area Product 63990 mGy/cm. 11:39:35 Contrast amount:Isovue 300 80ml. 11:39:37 Maximum allowable dose exceeded? No. 11:39:38 Sharps counted by scrub and verified by R.N. 11:39:44 Post-op/insertion site Right Femoral artery dressed using a 4 x 4 and Tegaderm. 11:39:47 Post-procedure physical assessment completed. ASA score P 2 - A patient with mild systemic disease as per Claude Mills MD. 11:39:50 Post procedure rhythm: unchanged. 11:39:52 Estimated blood loss: 5 ml 11:39:53 Post procedure instruction explained to patient.Patient verbalizes understanding. 11:39:53 Patient needs reinforcement of post procedure teaching. 11:41:06 Procedure and supply charges have been captured, reviewed, submitted and are correct. 11:41:09 Procedure Complication : No complications 11:41:11 Vital chart was stopped 11:41:14 [facility] Findings: mild to moderate CAD (<70%) 11:41:17 Operative report dictated upon procedure completion. 11:41:17 See physician's report for complete and final results. 11:41:18 Report given to Pre/Post Procedure Room. 11:41:21 Patient transfered to Pre/Post Procedure Room with Bed. 11:41:24 Procedure ended. 11:41:24 Full Disclosure recording stopped 11:41:27 End room use (Document Last) 11:43:31 End room use (Document Last) 11:44:06 End room use (Document Last) Device Usage Item Name Manufacture Quantity Catalog Hospital Part Current Minimal L ot# / Number Charge Number Stock Stock Serial# Code ACIST Acist 1 93046 991300 156538 889868 20 Syringe Medical (10677) Systems Inc Bag Microtek 1 038447 91988 016333 5 Decanter Medical Inc. () ACIST Hand Acist 1 77049 247296 736263 838453 5 Control Medical (05738) Systems Inc ACIST Acist 1 73886 351561 521565 766657 5 Manifold Medical (52268) Systems Inc Tegaderm 4 3M 1 1626W 614448 122519 289436 5 x 4 (1626W) Medline Medline 1 [id number] 396598 54089 276436 5 Cath Pack ([id number]) DIAGNOSTIC Cardinal 1 [id number] 543288 65786 604387 30 Multipack Health 5Fr catheter set (BF1177) SHEATH 5FR Terumo 1 [id number] 577312 729879 342991 5 [place] (AZN307) EMERALD Cardinal 1 502-455 338106 849827 626178 5 Guide Wire Health (502455) MULTIPACK Cardinal 1 599022 5 Pigtail 5 Health Fr catheter MULTIPACK Cardinal 1 020826 5 JL 4.0 5Fr Health catheter DIAGNOSTIC Cardinal 1 [id number] 931591 599143 288111 5 JL 6 5Fr Health catheter ([id number]) MULTIPACK Cardinal 1 404245 5 3DRC 5Fr Health catheter DIAGNOSTIC Cardinal 1 [id number] 495498 177039 395026 20 AR2 MOD 5 Health Fr catheter ([id number]) EXOSEAL 5Fr Cardinal 1 EX500 771207 426917 194963 10 (EX500) Health Signature Audit [place] Stage Time Signature Unsigned Intra-Procedure 11/29/2019 Kizzy Norton 11:43:31 AM RT(R) Intra-Procedure 11/29/2019 Gerardo 11:44:06 AM Christo GOODWIN Intra-Procedure 11/29/2019 Claude Mills 11:44:31 AM [id number] [place] [address]
[2019-11-29] MEDS ORDERED: ENTRESTO 97 MG1 EACH PO (09:13)
[2019-11-29] MEDS ORDERED: BUMEX2 MG PO (09:18)
[2019-11-29] MEDS ORDERED: LUMIGAN 0.01%2.5 ML EACH EYE (09:19)
[2019-11-29] MEDS ORDERED: COREG 3.1253.125 MG PO (09:19)
[2019-11-29] MEDS ORDERED: RESTORIL15 MG PO (09:20)
[2019-11-29] MEDS ORDERED: LIPITOR40 MG PO (09:20)
[2019-11-29 09:25] VITALS: BP 120/67; BMI 31.2
[2019-11-29 09:38] LABS: BASOPHILS 0.5 % (0-2); EOSINOPHILS 3.1 % (0-7); HEMATOCRIT 43.6 % (42.0-54.0); HEMOGLOBIN 14.2 g/dL (13.5-17.5); IMMATURE GRANULOCYTES 0.2 % (0-5); LYMPHOCYTES 17.1 % (15-50); MCH 30.3 pg (26.0-34.0); MCHC 32.6 g/dL (31.0-37.0); MEAN PLATELET VOLUME 9.2 fL (7.4-10.4); MONOCYTES 11.6 % (2-11); NEUTROPHILS 67.5 % (40-80); RBC 4.69 10x6/uL (4.20-6.10); RDW 13.7 % (11.5-14.5); WBC 8.7 10x3/uL (4.8-10.8)
[2019-11-29 09:39] LABS: PLATELET COUNT 233 10x3/uL (130-400)
[2019-11-29 09:56] LABS: ANION GAP 9.1 mmol/L (8-16); CALCIUM 8.8 mg/dL (8.5-10.1); CARBON DIOXIDE 30.9 mmol/L (21.0-32.0); CREATININE - SERUM 1.5 mg/dL (0.6-1.3); LDL-HDL RATIO 1.6 ratio (1.5-3.5)
--- NOTE | 2019-11-29 11:55 | NUR ---
PT RECEIVED VIA STRETCHER FROM HEAD SCORER FOR HOLDING UNTIL MED 2 BED AVAILABLE. PT WILL BE ADMITTED FOR CHF. IV PATENT INFUSING VIA PUMP PER ORDERS. DOBUTABINE AT 5MG/PUMP. PT PLACED ON CARDIAC MONITORS AND O2 VIA NC AT 2L/ PT DENIES PAIN OR DISCOMFORT. HR PACED AT 79, BP 123/57, RR 16, SAT 95. R GROIN W 5FR EXOCELE, DRESSING CDI NO BLEEDING OR S/S HEMATOMA NOTED. LEG PINK AND WARM, PEDAL PULSES PALPABLE. PT INSTRUCTED TO KEEP HEAD ON PILLOW AND LEG STRAIGHT, HE AND HIS BOTH VERBALIZED UNDERSTANDING. CALL LIGHT IN REACH
--- NOTE | 2019-11-29 12:05 | NUR ---
DR MCARTHUR AT , DISCUSSING W AND PT PLAN OF CARE AND PROCEDURE RESULTS.
--- NOTE | 2019-11-29 12:15 | NUR ---
R GROIN SOFT, DRESSING REMAINS CDI NO BLEEDING OR S/S HEMATOMA NOTED. VSS. CALL LIGHT IN REACH
--- NOTE | 2019-11-29 12:40 | NUR ---
MED 2 BED 2120 READY, REPORT CALLED TO BUDDY ZELAYA TO ASSUME CARE.
--- NOTE | 2019-11-29 13:10 | NUR ---
PT TRANSFERED TO [facility] ROOM 2120 VIA STRETCHER. GROIN SOFT, DRESSING REMAINS CDI NO BLEEDING OR S/S HEMATOMA NOTED. GARCIA CHACON RN TO ASSUME CARE.
--- NOTE | 2019-11-29 13:37 | NUR ---
RECIVED PT TO ROOM 2120. POST CATH RT LAYLA VANN C/D/I. ADMIT ASSESSMENT PER RN
[2019-11-29 13:51] VITALS: BP 125/53; Ht 182.9 cm; Wt 104.5 kg
[2019-11-29 16:26] VITALS: BP 114/49
[2019-11-29 20:00] VITALS: BP 122/53
[2019-11-30] VITALS: BP 125/57
[2019-11-30 04:00] VITALS: BP 127/67
--- NOTE | 2019-11-30 08:57 | NUR ---
ASSESSMENT DONE. DENIES NEEDS
[2019-11-30 09:18] VITALS: BP 127/70
--- NOTE | 2019-11-30 09:47 | NUR ---
I have reviewed this patient and I concur with the Shift Assessment completed by the Licensed Practical Nurse today this shift.
[2019-11-30 09:56] LABS: ANION GAP 8.4 mmol/L (8-16); CALCIUM 8.7 mg/dL (8.5-10.1); CARBON DIOXIDE 32.1 mmol/L (21.0-32.0); CREATININE - SERUM 1.5 mg/dL (0.6-1.3); POTASSIUM - SERUM 3.5 mmol/L (3.5-5.1)
--- NOTE | 2019-11-30 10:02 | NUR ---
UPON ADMIT, PATIENT HAS NOT HAD A FLU SHOT. WHEN QUESTIONED, HE REPORTS THAT HE HAD ONE IN AUGUST 2019.
--- NOTE | 2019-11-30 11:16 | NUR ---
DC GIVEN TO PT
[2019-11-30 12:12] VITALS: BP 149/52
--- NOTE | 2019-11-30 12:38 | NUR ---
DC HOME PER PERSONAL CAR
--- NOTE | 2019-12-06 11:24 | OP ---
PATIENT NAME: CHARLEY VASQUEZ JR MEDICAL RECORD: [id number] :44 LOCATION:D.CAT ADMISSION DATE: SURGEON: ALBER MCARTHUR MD DATE OF OPERATION: 11/29/2019 PROCEDURES: 1. Left heart catheterization. 2. Selective coronary angiography. 3. Left ventriculogram. 4. Vein graft angiography. 5. OCONNELL angiography. INDICATION: Angina, coronary artery disease, heart failure, and cardiomyopathy. PROCEDURE IN DETAIL: After informed consent was obtained and after a detailed description of risks, benefits as well as alternative therapies, the patient elected to proceed with angiogram and heart catheterization. The right femoral area was prepped and draped in normal sterile fashion. Right femoral artery was cannulated via modified Seldinger technique with a placement of 5-Guine[place] sheath. All catheters exchanged through this sheath. FINDINGS: Left ventriculogram was performed in standard 30-degree SUAREZ view reveals severe global hypokinesis, ejection fraction 20% or less. This is a change, previously he was in the 35% range. SELECTIVE CORONARY ANGIOGRAPHY: 1. Left main is closed. 2. Left anterior descending is closed. 3. Left circumflex is closed. 4. Right coronary artery is closed. 5. OCONNELL to the LAD is patent. Distal LAD is small and diffusely diseased, but widely patent. 6. Vein graft to the LAD diagonal is patent. The distal diagonal is small and diffusely diseased, but widely patent. 7. Vein graft to the ramus intermedius is patent. Distal ramus intermedius is small and diffusely diseased, but patent. 8. Vein graft to the circumflex obtuse marginal is patent, distal obtuse marginal is small and diffusely diseased, but patent. 9. Vein graft to the RCA is patent. Distal RCA is small and diffusely diseased, but patent. OVERALL IMPRESSION: 1. Severe cardiomyopathy, ejection fraction 20%. 2. Wide patency of all grafts with severe diffuse disease and small vessel disease of all vessels after the grafts. TRANSINT:[id number] Voice Confirmation ID: [id number] DOCUMENT ID: [id number] OPERATIVE REPORT [id number] CHARLEY VASQUEZ JR ALBER MCARTHUR MD at 1124 CC: [id number] DICTATION DATE: 11/29/19 1147 PREPRESS PROOFER: 11/29/19 1349 DEP CLI 11/30/19 [facility] [address] [place] [address]
--- NOTE | 2019-12-06 11:24 | EC ---
PATIENT:CHARLEY VASQUEZ JR DATE OF SERVICE: 11/29/19 SEX: M MEDICAL RECORD: [id number] DATE OF : 44 LOCATION:D.CAT AGE OF PATIENT: 79 ADMISSION DATE: 11/29/19 REFERRING PHYSICIAN: INTERPRETING PHYSICIAN: ALBER MCARTHUR MD ECHOCARDIOGRAM REPORT ECHO CHARGES Date: CLINICAL DIAGNOSIS: ECHOCARDIOGRAPHIC MEASUREMENTS (adult normal given) AC root (d.<3.7cm) cm LV Septum d (<1.2 cm> cm Valve Excursion cm LV Septum (systole) cm Left Atria (s.<4.0cm> cm LVPW d(<1.2cm) cm RV (d.<2.3cm) cm LVPW (sytole) cm LV diastole(<5.6CM) cm MV E-F(>70mm/sec) cm LV systole cm LVOT Diameter cm MV exc.(>10mm) cm Est.ejection fraction (50-75%) % DOPPLER: LVIT cm/sec A cm/sec E cm/sec LA cm/sec RVSP mmHg LVOT cm/sec AOP1/2T m/s Asc. Ao cm/sec RVOT cm/sec RA cm/sec PA cm/sec AV Gradient Peak mmHg AV Mean mmHg AV Area cm MV Gradient Peak mmHg MV Mean mmHg MV Area cm COMMENTS: Database Designer: Dress Shoe Inspector: [email or web address]# Pericardial Effusion DATE OF SERVICE: PROCEDURE: Echocardiogram. FINDINGS: 1. Left ventricular chamber size is moderately dilated. Left ventricular systolic function is markedly reduced at 25%. 2. Left atrium is within normal limits at 3.7 cm. Right atrium and right ventricular chamber sizes are moderately dilated. 3. Valvular structures have normal structure and motion. ECHOCARDIOGRAM REPORT [id number] CHARLEY VASQUEZ JR 4. Doppler interrogation reveals [id number] aortic insufficiency, moderate mitral regurgitation, mild tricuspid regurgitation, no other valvular insufficiency or stenosis. Pulmonary systolic pressure is estimated at 36 mmHg. 5. No evidence of pericardial effusion or left ventricular thrombus. TRANSINT:[id number] Voice Confirmation ID: [id number] DOCUMENT ID: [id number] ALBER MCARTHUR MD at 1124 CC: [id number] DICTATION DATE: 11/29/19 1148 WELT STITCH CLEANER: 11/29/19 1352 DEP CLI 11/30/19 [facility] [address] [facility] [address]
--- NOTE | 2019-12-06 11:24 | DS ---
PATIENT:CHARLEY SANTIAGO JR :44 MEDICAL RECORD: [id number] DISCHARGE SUMMARY ADMISSION DATE: 11/29/19 DISCHARGE DATE: 11/30/19 DIAGNOSES: 1. Congestive heart failure, chronic systolic dysfunction. 2. Cardiomyopathy. 3. Coronary artery disease. 4. Hypertension. 5. Hyperlipidemia. HOSPITAL COURSE: Mr. Santiago presents with anginal symptomatology and heart failure symptomatology; however, he underwent cardiac catheterization revealing wide patency of the previously placed grafts, diffuse distal disease, EF 25%. He was placed on dobutamine and Bumex drips, had great diuresis, clearing of the heart failure symptomatology. Discharged home with follow up with cardiology associates in 1 week. TRANSINT:[id number] Voice Confirmation ID: [id number] DOCUMENT ID: [id number] ALBER MCARTHUR MD at 1124 CC: [id number] DICTATION DATE: 11/30/19 0727 WAREHOUSE MANAGER: 11/30/19 0832 DEP CLI 11/30/19 [id number] [place] [address]
== END 2019-11-30 12:39 | disposition home or self-care (01) ==
LOC: D.M2 08:42 → D.CATH 08:42 → D.M2 13:10 → D.CATH 11-30 12:39
PROVIDERS: ATTEND Internal Medicine Interventional Cardiology
DX: I25.119 Atherosclerotic heart disease of native coronary artery with unspecified angina pectoris (principal); I50.9 Heart failure, unspecified; I42.9 Cardiomyopathy, unspecified; E10.9 Type 1 diabetes mellitus without complications; I34.0 Nonrheumatic mitral (valve) insufficiency; E78.5 Hyperlipidemia, unspecified; I10 Essential (primary) hypertension; I35.8 Other nonrheumatic aortic valve disorders; R06.09 Other forms of dyspnea; Z95.810 Presence of automatic (implantable) cardiac defibrillator